=== PATIENT | female | born 1955 | race African-American/Black ===

== ENCOUNTER 2016-09-27 23:15 | Inpatient (IN) ==
[2016-09-27] MEDS ORDERED: ALUM/MAG/SIMETH/LIDO VISC 1:1 30 ML BOTTLE PO STA (23:57)
[2016-09-27] MEDS ORDERED: ONDANSETRON 4 MG/2 ML VIAL IV STA (23:57)
[2016-09-27] MEDS ORDERED: SODIUM CHLORIDE 0.9% 1,000 ML IV STA (23:57)
[2016-09-27] MEDS ORDERED: PANTOPRAZOLE 40 MG VIAL IV STA (23:57)
[2016-09-28 00:45] LABS: Basophils # 0.1 10*3/uL (0.0-0.2); Basophils % 0.6 % (0.0-0.8); Eosinophils # 0.1 10*3/uL (0.0-0.87); Eosinophils % 0.7 % (0.00-10.9); Hematocrit 39.4 VOL% (35.7-47.0); Hemoglobin 12.2 GM/DL (12.0-16.0); Immature Granulocytes % 0.4 %; Immature Granulocytes Absolute 0.06 #; Lymphocytes # 3.7 10*3/uL (1.4-4.0); Lymphocytes % 25.1 % (21.3-54.2); Mean Corpuscular Hemoglobin 24 PG (27-34); Mean Corpuscular Volume 78.5 FL (87-102); Mean Platelet Volume 10.9 FL (9.6-12.0); Monocytes # 0.9 10*3/uL (0.11-0.8); Monocytes % 5.9 % (1.7-12.7); Neutrophils % 67.3 % (38.7-73.9); Platelet Count 274 T/CUMM (130-400); Red Blood Count 5.02 MC/CUMM (3.8-5.5); Red Cell Distribution Width 15.1 % (9.3-17.3); White Blood Count 14.9 T/CUMM (4-12)
[2016-09-28] MEDS ORDERED: ALUM/MAG/SIMETH/LIDO VISC 1:1 30 ML BOTTLE PO ONE (00:46)
[2016-09-28] MEDS ORDERED: ONDANSETRON 4 MG/2 ML VIAL ONE (00:46)
[2016-09-28] MEDS ORDERED: PANTOPRAZOLE 40 MG VIAL IV ONE (00:46)
[2016-09-28 01:11] LABS: Alanine Aminotransferase 35 U/L (13-56); Albumin 3.8 G/DL (3.4-5.0); Alkaline Phosphatase 74 U/L (45-117); Amylase 84 U/L (25-115); Aspartate Amino Transferase 63 U/L (0-37); Bilirubin,Total < 0.39 MG/DL (0.2-1.0); Blood Urea Nitrogen 19 MG/DL (7-18); Calcium 9.2 MG/DL (8.5-10.1); Glucose 200 MG/DL (74-106); Magnesium 1.5 MG/DL (1.8-2.4); Osmolality,Calculated 284.5 MOS/KG (273-304); Potassium 3.7 MMOL/L (3.5-5.1); Sodium 139 MMOL/L (136-145); Total Protein 7.8 G/DL (6.4-8.3); Troponin I Only < 0.015 NG/ML (0.00-0.045)
[2016-09-28] MEDS ORDERED: MAGNESIUM SULF RIDER 2 GM in PREMIX 1 EACH IV STA (01:25)
--- NOTE | 2016-09-28 01:26 | Emergency Department Note ---
ICassie Sierra, am scribing for, and in the presence of, Dane Forrest MD 00:01. Lon Mcduffie Charles R, MD, personally performed the services described in this documentation, ascribed by Berenice Matthews in my presence, and it is both accurate and complete . Arrival - Arrival Chief Complaint: Nausea/Vomiting/Diarrhea Stated Complaint: headache, vomiting ,weak , diarrhea ED Nursing Triage Note: C/O N/V/D/Dizziness. Onset all day today. Pt also reports having a headache for the past 3 days. Mode of Arrival: Wheelchair Limitations: No Limitations Source: Patient Time Seen by Provider: 09/27/16 23:53 - History of Present Illness HPI Narrative: Pt is a 61 y/o female that came to the ED with c/o N/V/D that began last night. Pt reports the diarrhea came on first and stopped tonight but the N/V came on tonight. Pt has associated sxs of orthostatic dizziness, weakness, and abdominal pain but denies CP. Pt states she does have DM and her blood sugar has been around 165 and normally it is higher. Pt reports a PMHx of arthritis and IDDM and a PSHx of cholecystectomy. Pt's PCP is Dr. Gerber. No other complaints/pain in ED. Onset (ago): day(s) Consistency: constant Severity: mild Severity scale (1-10): 2 Quality: other Date of Last Menstrual Period: Hysterectomy Allergies/Adverse Reactions: Allergies Allergy/AdvReac Type Severity Reaction Status Date / Time clonidine Allergy RASH Verified 09/11/16 20:17 codeine Allergy RASH Verified 09/11/16 20:17 levofloxacin [From Levaquin] Allergy Unknown/Unable Verified 09/11/16 20:17 to obtain morphine Allergy RASH Verified 09/11/16 20:17 prednisone Allergy Unknown/Unable Verified 09/11/16 20:17 to obtain Home Medications: Home Medications Medication Instructions Recorded Confirmed Type Amitriptyline [Elavil] 150 mg PO BEDTIME 03/23/16 03/25/16 History Butalbital/Acetaminophen 1 each PO DAILY 03/23/16 03/25/16 History [Butalbital-Acetaminophn 50-325] Cyclobenzaprine [Flexeril] 10 mg PO BID 03/23/16 03/25/16 History Ferrous Sulfate 325 mg PO DAILY 03/23/16 03/25/16 History Gabapentin 300 mg PO TID 03/23/16 03/25/16 History Insulin Glargine,Hum.rec.anlog 50 unit SUBCUT AC BREAKFAST 03/23/16 03/25/16 History [Khushi Hinojosa] Metoclopramide Tab [Reglan Tab] 5 mg PO BID 03/23/16 03/25/16 History Metoprolol Succinate Xl [Toprol Xl] 25 mg PO DAILY 03/23/16 03/25/16 History Potassium Chloride 8 meq PO BID 03/23/16 03/25/16 History Rosuvastatin [Crestor] 10 mg PO DAILY 03/23/16 03/25/16 History Trandolapril/Verapamil HCl [Tarka 1 each PO DAILY 03/23/16 03/25/16 History ER 2-240 mg Tablet] Venlafaxine Xr [Effexor XR] 37.5 mg PO DAILY 03/23/16 03/25/16 History glyBURIDE/METFORMIN 5-500 1 tablet PO BID 03/23/16 03/25/16 History [Glucovance 5-500] hydroCHLOROthiazide 25 mg PO DAILY 03/23/16 03/25/16 History [Hydrochlorothiazide] Naproxen [Naprosyn Tab] 500 mg PO Q12H #30 tablet 08/07/16 Rx Ondansetron Tab [Zofran Tab] 4 mg PO Q6H #12 tablet 08/09/16 Rx metroNIDAZOLE TAB [Flagyl Cap/Tab] 250 mg PO TID #14 tablet 09/12/16 Rx Review of System - Review of System 12 point system: reviewed and no additional remarkable complaints except as stated - Review of System Constitutional: Present: weakness, other (orthostatic dizziness). Absent: fever Respiratory: Absent: cough Cardiovascular: Absent: chest pain Gastrointestinal: Present: abdominal pain, nausea, vomiting, diarrhea (diarrhea last night but not stopped tonight) Musculoskeletal: Absent: arm pain, back pain, leg pain, neck pain Skin: Absent: rash Psychiatric: Absent: anxiety Medical,Surgical,& Family Hx - Medical History Cardio: History of: Hypertension Psychological: History of: Anxiety Disorders Neurology: History of: Migraine HEENT: History of: Ear Problem (had fluid in ear) Endocrine: History of: Diabetes Mellitus (IDDM), Dyslipidemia, Thyroid Disorder Genitourinary: History of: Kidney Stones Gastrointestinal: History of: Diverticulitis/ Diverticulosis, GERD, Hemorrhoids Musculoskeletal: History of: Degenerative Disk Disease, Osteoporosis Hematology: History of: Sickle Cell Disease, Blood Disorders (leukocytosis) - Surgical History HEENT Surgeries: Surgical HX of: Tonsilectomy & Adenoidectomy Abdominal Surgeries: Surgical HX of: Appendectomy, Cholecystectomy, Colonoscopy , EGD Reproductive Surgeries: Surgical HX of;: Genitourinary Surgery (removed kidney stones), Hysterectomy Orthopedic Surgeries: Surgical HX of;: Total Hip Replacement (bilateral), Total Knee Replacement (left) - Family History Family History: Reports;: Family Cancer (sister,neice), Family Diabetes ( grandmother), Family Heart Disease (grandmother), Family Stroke (mother, grandmother) - Social History Smoking Status: Current every day smoker Frequency of Alcohol Use: None Type of Drug Use: None Exam Vital Signs: Vital Signs Temperature 97.4 F L 09/27/16 23:34 Pulse Rate 102 H 09/27/16 23:34 Respiratory Rate 16 09/27/16 23:34 Blood Pressure 98/69 09/27/16 23:34 O2 Sat by Pulse Oximetry 98 09/27/16 23:34 - General General appearance: alert, in no apparent distress - Head Head exam: Present: atraumatic, normocephalic - Eye Eye exam: Present: PERRL, EOMI - ENT ENT exam: Present: mucous membranes dry. Absent: mucous membranes moist - Neck Neck exam: Present: full ROM. Absent: tenderness - Chest Chest inspection: Present: symmetric chest wall rise. Absent: tenderness - Respiratory Respiratory exam: Present: normal lung sounds bilaterally. Absent: respiratory distress - Cardiovascular Cardiovascular exam: Present: regular rate, normal rhythm, normal heart sounds - Abdominal Exam Abdominal exam: Present: soft, tenderness (epigastric tenderness; suprapubic tenderness) - Extremities Exam Extremities exam: Present: full ROM. Absent: tenderness - Back Exam Back exam: Present: full ROM. Absent: tenderness - Neurological Exam Neurological exam: Present: alert, oriented X3, CN II-XII intact. Absent: motor sensory deficit - Psychiatric Psychiatric exam: Present: normal affect, normal mood - Skin Skin exam: Present: other (poor skin turgor) Course - Consultations Consultation #1: Hospitalist will admit patient Time: 03:45 Results - Labs CBC & BMP: 09/27/16 00:36 09/27/16 00:36 Lab Results: I have reviewed the patients labs Labs: Laboratory Tests 09/27/16 00:36 WBC 14.9 H MCV 78.5 L MCH 24 L MCHC 31.0 L Neut # (Auto) 10.0 H Hitchcock # (Auto) 0.9 H Laboratory Tests 09/27/16 00:36 Anion Gap 15.7 H BUN 19 H Creatinine 2.00 H Glucose 200 H Magnesium 1.5 L AST 63 H Globulin 4.0 H Albumin/Globulin Ratio 0.9 L Laboratory Tests 09/28/16 02:30 Urine Color Xuan Urine Appearance Cloudy Urine pH 5.0 Ur Specific [place] 1.021 Urine Protein 100 Urine Glucose (UA) Negative Urine Ketones 5 Urine Blood Negative Urine Nitrate Negative Urine Bilirubin Negative Urine Urobilinogen < 2.0 H Urine Leukocytes Negative Urine RBC 3 Urine WBC 3 Ur Squamous Epith Cells Occasional Urine Bacteria Moderate Hyaline Casts 37 Urine Mucus Occasional Disposition Clinical Impression: Gastroenteritis, Hypovolemia, Hypomagnesemia, Renal insufficiency, Dehydration , Colitis Case discussed with: patient, patient's family Condition: Stable Time of Disposition: 03:46
[2016-09-28] MEDS ORDERED: MAGNESIUM SULF RIDER 50 ML IV ONE (01:27)
[2016-09-28] MEDS ORDERED: SODIUM CHLORIDE 0.9% 1,000 ML IV STA (02:37)
[2016-09-28 02:45] LABS: Apearance,Urine CLOUDY (Clear); Bacteria,Urine Moderate /HPF (Few); Bilirubin,Urine Negative (Negative); Blood, Urine Negative (Negative); Glucose,Urine (UA) Negative (Negative); Hyaline Casts,Urine 37 /LPF (0-3); Ketones,Urine 5 mg/dL (Negative); Mucus,Urine Occasional /LPF (Occasional); Nitrite,Urine Negative (Negative); Protein,Urine 100 MG/DL; RBC,Urine 3 /HPF (0-4); Squamous Epithelial Cell,Urine Occasional /HPF (0-10); Urine Color Amber (Yellow); Urine Specific Gravity 1.021 (1.001-1.035); Urine Urobilinogen < 2.0 EU/DL (0.2-1.0); WBC,Urine 3 /HPF (0-6)
--- NOTE | 2016-09-28 04:36 | Hospitalist History & Physical ---
Assessment and Plan (1) Diabetes mellitus with hyperglycemia Status: Chronic Current Visit: No (2) Hypertension Status: Chronic Current Visit: No (3) Acute renal failure Status: Resolved Current Visit: No (4) Colitis Status: Resolved Current Visit: No (5) Leukocytosis Status: Resolved Assessment and plan: We will admit patient our service. Put on IV antibiotics. Check stool cultures on her treat her symptomatically. She had a CT scan earlier this month approximately 2 weeks ago when she was admitted to Dr. Last. It revealed some mild colitis. Her symptoms seem consistent with that. Will reevaluate after hydration and recheck labs. Her creatinine is a normal value and today it is 2.0 Current Visit: No History of Present Illness Chief complaint: Nausea vomiting diarrhea dizziness History of present illness: Ms. Saxena is a 61 year old female who presents to our ER tonight complaining about gastroenteritis symptoms. She said that her symptoms started yesterday. Started with the diarrhea and then she started throwing up. She felt weak and almost passed out. Symptoms continued. She came up to our hospital for further evaluation. She has had some abdominal pain but denies chest pain. I was consulted to admit her to the emergency room. Her PCP is Dr. Zabrina Al Medications Medication Instructions Recorded Confirmed Type Amitriptyline [Elavil] 150 mg PO BEDTIME 03/23/16 03/25/16 History Butalbital/Acetaminophen 1 each PO DAILY 03/23/16 03/25/16 History [Butalbital-Acetaminophn 50-325] Cyclobenzaprine [Flexeril] 10 mg PO BID 03/23/16 03/25/16 History Ferrous Sulfate 325 mg PO DAILY 03/23/16 03/25/16 History Gabapentin 300 mg PO TID 03/23/16 03/25/16 History Insulin Glargine,Hum.rec.anlog 50 unit SUBCUT AC BREAKFAST 03/23/16 03/25/16 History [Toconsuelo Hinojosa] Metoclopramide Tab [Reglan Tab] 5 mg PO BID 03/23/16 03/25/16 History Metoprolol Succinate Xl [Toprol Xl] 25 mg PO DAILY 03/23/16 03/25/16 History Potassium Chloride 8 meq PO BID 03/23/16 03/25/16 History Rosuvastatin [Crestor] 10 mg PO DAILY 03/23/16 03/25/16 History Trandolapril/Verapamil HCl [Tarka 1 each PO DAILY 03/23/16 03/25/16 History ER 2-240 mg Tablet] Venlafaxine Xr [Effexor XR] 37.5 mg PO DAILY 03/23/16 03/25/16 History glyBURIDE/METFORMIN 5-500 1 tablet PO BID 03/23/16 03/25/16 History [Glucovance 5-500] hydroCHLOROthiazide 25 mg PO DAILY 03/23/16 03/25/16 History [Hydrochlorothiazide] Naproxen [Naprosyn Tab] 500 mg PO Q12H #30 tablet 08/07/16 Rx Ondansetron Tab [Zofran Tab] 4 mg PO Q6H #12 tablet 08/09/16 Rx metroNIDAZOLE TAB [Flagyl Cap/Tab] 250 mg PO TID #14 tablet 09/12/16 Rx Allergies Allergy/AdvReac Type Severity Reaction Status Date / Time clonidine Allergy RASH Verified 09/11/16 20:17 codeine Allergy RASH Verified 09/11/16 20:17 levofloxacin [From Levaquin] Allergy Unknown/Unable Verified 09/11/16 20:17 to obtain morphine Allergy RASH Verified 09/11/16 20:17 prednisone Allergy Unknown/Unable Verified 09/11/16 20:17 to obtain Medical,Surgical,& Family Hx - Medical History Cardio: History of: Hypertension Psychological: History of: Anxiety Disorders Neurology: History of: Migraine HEENT: History of: Ear Problem (had fluid in ear) Endocrine: History of: Diabetes Mellitus (IDDM), Dyslipidemia, Thyroid Disorder Genitourinary: History of: Kidney Stones Gastrointestinal: History of: Diverticulitis/ Diverticulosis, GERD, Hemorrhoids Musculoskeletal: History of: Degenerative Disk Disease, Osteoporosis Hematology: History of: Sickle Cell Disease, Blood Disorders (leukocytosis) - Surgical History HEENT Surgeries: Surgical HX of: Tonsilectomy & Adenoidectomy Abdominal Surgeries: Surgical HX of: Appendectomy, Cholecystectomy, Colonoscopy , EGD Reproductive Surgeries: Surgical HX of;: Genitourinary Surgery (removed kidney stones), Hysterectomy Orthopedic Surgeries: Surgical HX of;: Total Hip Replacement (bilateral), Total Knee Replacement (left) - Family History Family History: Reports;: Family Cancer (sister,neice), Family Diabetes ( grandmother), Family Heart Disease (grandmother), Family Stroke (mother, grandmother) - Social History Smoking Status: Current every day smoker Frequency of Alcohol Use: None Type of Drug Use: None 12 point system: reviewed and no additional remarkable complaints except as stated Exam - Constitutional Vitals: Period Temp Pulse Resp BP Sys/Alvarez Pulse Ox Last 24 Hr 90 16 122/66 99 General appearance: no acute distress, over weight - Head Head exam: Present: normal inspection - Eye Eye exam: Present: EOMI Pupils: Present: BETHANY - ENT ENT exam: Present: normal exam - Neck Neck exam: Present: normal inspection - Respiratory Respiratory exam: Present: clear to auscultation bilaterally - Cardiovascular Cardiovascular exam: Present: regular rate and rhythm - GI/Abdominal GI/Abdominal exam: Present: hyperactive bowel sounds - Extremities Exam Extremities exam: Present: normal inspection - Back Exam Back exam: Present: normal inspection - Neurological Exam Neurological exam: Present: alert - Psychiatric Psychiatric exam: Present: normal affect - Skin Skin exam: Present: normal color Results - Labs CBC & BMP: 09/27/16 00:36 09/27/16 00:36
[2016-09-28] MEDS ORDERED: GLUCAGON 1 MG VIAL IM PRN (04:57)
[2016-09-28] MEDS ORDERED: DEXTROSE 50% 25 GM/50 ML VIAL IV PRN (04:57)
[2016-09-28] MEDS: SODIUM CHLORIDE 0.9% 1,000 ML IV SCH ×2 (05:19→13:15)
[2016-09-28] MEDS: PIPERACILLIN/TAZOBACTAM 3,375 MG in SODIUM CHLORIDE 0.9% 100 ML IV SCH ×2 (05:44→15:14)
--- NOTE | 2016-09-28 06:43 | XRay Report ---
2 view abdomen. Indication: Generalized abdominal pain. Comparison: August 03, 2014. The lung bases are clear. Surgical clips are present in the right upper quadrant. Possible clip or calcification in the right breast. No intra-abdominal organomegaly is seen. There are no abnormal calcifications over the renal outlines. There is air in normal caliber small and large intestine, without evidence of obstruction. There are a few small intestinal air-fluid levels present. No significant distention. Bilateral hip replacements. Degenerative changes of the spinal column and diffuse demineralization of the osseous structures. Impression: Mild ileus bowel gas pattern. PROCEDURE INTERPRETED AT [facility] DEPARTMENT OF RADIOLOGY Final Report Signed by: Dr. Trudy Levine
--- NOTE | 2016-09-28 06:44 | XRay Report ---
Single view of the chest. Indication: Generalized abdominal pain. Comparison: March 25, 2016. The heart is normal in size. The pulmonary vasculature is normal. The lung lopez are free of infiltrate. No pneumothorax or pleural effusion. Degenerative changes of the spinal column. Surgical clips in the right upper quadrant. Impression: Stable appearance of the chest. PROCEDURE INTERPRETED AT [facility] DEPARTMENT OF RADIOLOGY Final Report Signed by: Dr. Trudy Levine
[2016-09-28] MEDS: INSULIN REGULAR 100 UNIT/ML SUBCUT SCH ×4 (08:10→21:41)
[2016-09-28] MEDS: PANTOPRAZOLE 40 MG TABLET PO SCH (09:43)
[2016-09-28] MEDS: metroNIDAZOLE INJ 500 MG in PREMIX 1 EACH IV SCH ×2 (09:43→20:26)
[2016-09-28] MEDS ORDERED: ONDANSETRON 4 MG/2 ML VIAL IV PRN (10:35)
[2016-09-28] MEDS: traMADol 50 MG TABLET PO PRN (16:55)
[2016-09-29] MEDS: traMADol 50 MG TABLET PO PRN (00:25)
[2016-09-29] MEDS: PIPERACILLIN/TAZOBACTAM 3,375 MG in SODIUM CHLORIDE 0.9% 100 ML IV SCH ×4 (00:25→21:39)
[2016-09-29] MEDS: SODIUM CHLORIDE 0.9% 1,000 ML IV SCH ×5 (00:26→22:06)
[2016-09-29] MEDS: metroNIDAZOLE INJ 500 MG in PREMIX 1 EACH IV SCH ×3 (04:18→20:04)
[2016-09-29 06:38] LABS: Basophils # 0.1 10*3/uL (0.0-0.2); Basophils % 0.9 % (0.0-0.8); Eosinophils # 0.2 10*3/uL (0.0-0.87); Immature Granulocytes % 0.4 %; Immature Granulocytes Absolute 0.03 #; Lymphocytes # 3.4 10*3/uL (1.4-4.0); Lymphocytes % 42.4 % (21.3-54.2); Mean Corpuscular HGB Conc 30.3 GM/DL (32-36); Mean Corpuscular Hemoglobin 24 PG (27-34); Mean Corpuscular Volume 78.6 FL (87-102); Mean Platelet Volume 11.4 FL (9.6-12.0); Monocytes # 0.5 10*3/uL (0.11-0.8); Monocytes % 6.2 % (1.7-12.7); Neutrophils # 3.9 10*3/uL (1.4-7.4); Neutrophils % 48.1 % (38.7-73.9); Red Cell Distribution Width 14.9 % (9.3-17.3)
[2016-09-29 06:39] LABS: Platelet Count 210 T/CUMM (130-400); White Blood Count 8.1 T/CUMM (4-12)
[2016-09-29 06:59] LABS: Bilirubin,Total 0.9 MG/DL (0.2-1.0); Calcium 8.4 MG/DL (8.5-10.1); Magnesium 1.8 MG/DL (1.8-2.4); Potassium 3.6 MMOL/L (3.5-5.1); Risk Ratio 3.89; Total Protein 6.1 G/DL (6.4-8.3); VLDL CHOLESTEROL 51.6 MG/DL
--- NOTE | 2016-09-29 07:58 | XRay Report ---
XR chest 2V Indication: Shortness of breath. Comparison: Chest x-ray 09/28/2016 Technique: PA and lateral chest x-ray was performed. Findings: Slightly less and inspiration is present. Linear interstitial markings in the mid lateral left mid to lower lung have increased slightly. These are nonspecific. Lungs otherwise are clear. Heart size normal. Bones and soft tissues stable. Surgical absence of the gallbladder is demonstrated. Impression: 1. Nonspecific interstitial stranding in the left lung base may in part reflect atelectasis. Infection not excluded. 09/29/2016 7:55 AM PROCEDURE INTERPRETED AT [facility] DEPARTMENT OF RADIOLOGY Final Report Signed by: Dr. Jeyson Waldrop
--- NOTE | 2016-09-29 07:59 | XRay Report ---
XR abdomen 1V Indication: Abdominal pain. Comparison: None. Technique: Supine AP image of the abdomen was obtained. Findings: Lung bases are clear. There is no evidence of organomegaly. Bowel gas pattern is unremarkable. Renal contours are bilaterally symmetric. Bones and soft tissues demonstrate no significant abnormalities. Bilateral hip prostheses are demonstrated. Surgical absence of the gallbladder is demonstrated. Impression: 1. No active process is demonstrated within the abdomen or pelvis. 09/29/2016 7:56 AM PROCEDURE INTERPRETED AT [facility] DEPARTMENT OF RADIOLOGY Final Report Signed by: Dr. Jeyson Waldrop
[2016-09-29] MEDS: INSULIN REGULAR 100 UNIT/ML SUBCUT SCH ×4 (08:11→22:33)
[2016-09-29] MEDS: PANTOPRAZOLE 40 MG TABLET PO SCH (08:57)
--- NOTE | 2016-09-29 15:49 | Hospitalist Progress Note ---
Hospitalist: Subjective Interval history: abd pain improving. No fever. No bowel movement since admission. No cp or SOB. No nausea or vomiting. Exam - Constitutional Vitals: Period Temp Pulse Resp BP Sys/Alvarez Pulse Ox Last 24 Hr 97.6 F-98.4 F 84-101 18-20 111-139/55-92 95-99 Exam: A and O x 3 RRR no M CTAB nonlabored Soft, diffuse TTP without rebound or guarding. Warm no c/c/ e Results - Labs CBC & BMP: 09/29/16 05:43 09/29/16 05:43 - Impressions (1) Diabetes mellitus with hyperglycemia- much better controlled Status: Chronic Current Visit: No - controlled on I.S.S. (2) Hypertension essential Status: Chronic Current Visit: No - cont current regimen (3) Acute renal failure Status: Resolved Current Visit: No (4) Suspected Acute Colitis Status: Resolved Current Visit: No - Cont antibiotics and F/U stool studies when available. I think she has constipation and will add stool softener/ laxative. (5) Leukocytosis Status: Resolved with antibiotic therapy D/W pt and family and all questions answered. Possible dc in am - Diagnostic Findings Procedure: Chest x-ray: report reviewed by me (left LL infiltrate), KUB x-ray: report reviewed by me (negative)
[2016-09-29] MEDS ORDERED: BISACODYL 10 MG SUPP RECTAL PRN (16:21)
[2016-09-29] MEDS: POLYETHYLENE GLYCOL POWDER 17 GM PACK PO SCH (16:43)
[2016-09-30] MEDS: metroNIDAZOLE INJ 500 MG in PREMIX 1 EACH IV SCH (04:53)
[2016-09-30] MEDS: SODIUM CHLORIDE 0.9% 1,000 ML IV SCH (06:23)
[2016-09-30] MEDS: PIPERACILLIN/TAZOBACTAM 3,375 MG in SODIUM CHLORIDE 0.9% 100 ML IV SCH (06:26)
--- NOTE | 2016-09-30 08:25 | Discharge Summary ---
<Emma Murphy - Last Filed: 09/30/16 08:28> Hospital Course - Hospital Course Hospital Course: Ms. Saxena is a 61-year-old female patient with a history of diabetes, hypertension, arthritis, renal insufficiency, and colitis that presented to the ED on 09/27 w ith complaints of nausea, vomiting, and diarrhea. Patient stated that she started having diarrhea and then she proceeded to throw up. The patient also had complaints of dizziness, weakness, and abdominal pain. The patient had been recently admitted to Dr. Last after a CT scan revealed mild colitis. Patient was admitted to the hospitalist service for further evaluation and treatment. Pt's WBC was elevated at admission at 14.9 and creatinine was 2. The patient was treated with IV fluids and IV antibiotics ( Zosyn and Flagyl). Leukocytosis has resolved. Pt's condition has improved and vital signs are stable at this time. Pt is stable for discharge. MD to follow. Specialty Discharge - Follow Up or Referrals Follow up with: , PCP [Other] - 2 Weeks Jacoby Barlow MD [Physician] - 10/14/16 10:00 am Discharge Plan - Discharge Data Disposition: Disch To Home/Self Care - Discharge Medications New Amitriptyline [Elavil] 75 mg PO BEDTIME #30 tablet Polyethylene Glycol Powder [Miralax] 17 gm PO DAILY traMADol TAB [Ultram] 25 mg PO Q6H PRN #20 tablet PRN Reason: Pain Pantoprazole Tab [Protonix Tab] 40 mg PO DAILY tablet Continue Insulin Glargine,Hum.rec.anlog [Khushi Hinojosa] 73 unit SUBCUT AC BREAKFAST glyBURIDE/METFORMIN 5-500 [Glucovance 5-500] 1 tablet PO BID Metoclopramide Tab [Reglan Tab] 5 mg PO BID Venlafaxine Xr [Effexor XR] 37.5 mg PO DAILY Rosuvastatin [Crestor] 10 mg PO DAILY Butalbital/Acetaminophen [Butalbital-Acetaminophn 50-325] 1 each PO DAILY Metoprolol Succinate Xl [Toprol Xl] 25 mg PO DAILY Gabapentin 300 mg PO TID Ferrous Sulfate 325 mg PO DAILY Discontinued Potassium Chloride 8 meq PO BID Amitriptyline [Elavil] 150 mg PO BEDTIME hydroCHLOROthiazide [Hydrochlorothiazide] 25 mg PO DAILY Trandolapril/Verapamil HCl [Tarka ER 2-240 mg Tablet] 1 each PO DAILY Cyclobenzaprine [Flexeril] 10 mg PO BID - Follow Up or Referral Follow Up: , PCP [Other] - 2 Weeks Jacoby Barlow MD [Physician] - 10/14/16 10:00 am - Forms/Instructions Exam - Constitutional Vitals: Period Temp Pulse Resp BP Sys/Alvarez Pulse Ox Last 24 Hr 96.8 F-98.2 F 80-91 18-20 137-163/69-92 95-98 Discharge Results Procedures and tests throughout hospitalization: Pending Orders 09/29/16 Stool Culture Routine Labs on day of discharge: Labs from last 24 hours 09/30/16 09/29/16 09/29/16 06:34 20:11 15:50 POC Glucose 166 H 231 H 220 H 09/29/16 11:28 POC Glucose 153 H Preliminary micro results at discharge 09/29/16 Unknown Stool Culture - Preliminary Stool No enteric pathogens at 12 hrs DS: Provider Date of admission: 09/28/16 03:50 Primary care physician: . No PCP Attending physician on admission: Bela Dick MD Consults: 09/28/16 05:02 Consult to Pharmacy [CONS] Routine Reason for Pharmacy Consult: Adjust Meds Renal Funct Discharging clinician: Emma Murphy NP <Bela Dick - Last Filed: 09/30/16 16:33> Hospital Course - Time spent with patient Time with patient DS: Greater than 30 minutes (37 minutes to arrange this discharge) Diagnosis - Discharge Diagnosis (1) Colitis Status: Acute (2) Diabetes mellitus with hyperglycemia Status: Chronic Discharge Plan - Discharge Data Condition at Discharge: Stable Discharge Diet: diabetic diet, other (soft diet) Activity: resume usual activities as tolerated Contact your physician if you experience:: Difficulty voiding, Nausea/Vomiting, pain uncontrolled by pain medications Exam - Constitutional Exam: see progress note from today for physical exam
[2016-09-30] MEDS: INSULIN REGULAR 100 UNIT/ML SUBCUT SCH ×2 (08:36→12:41)
[2016-09-30] MEDS: POLYETHYLENE GLYCOL POWDER 17 GM PACK PO SCH (08:37)
[2016-09-30] MEDS: PANTOPRAZOLE 40 MG TABLET PO SCH (08:38)
[2016-09-30] MEDS: traMADol 50 MG TABLET PO PRN (08:46)
--- NOTE | 2016-09-30 09:59 | Physician Query Form ---
CLICK EDIT DOCUMENT TO SELECT QUERY ANSWER --> OK --> SIGN Alysia Waldrop RN, CCDS Certified Clinical It Operations Analyst W) [phone] (f) [phone] [email or web address] PROVIDERS: Make your selection(s) from the choices in EACH section by typing an "x" and enter comments in the comment section. Please use your independent medical judgment in providing your response. This request does not imply that any particular answer is desired or expected. CLINICAL INDICATORS: (Providers should not edit this section) The medical record indicates that the patient was admitted with renal failure, Leukocytosis, WBC of 14.9, "Chest x-ray: report reviewed by me (left LL infiltrate)", and the patient was treated with Zosyn/ Flagyl. Based on the above, could you clarify the appropriate diagnosis, if significant , that supports the above abnormalities and additional evaluation, monitoring, and/or treatment rendered: ( ) Infiltrate due to ( ) Infiltrated due to Pneumonia ( x) Infiltrate was not a Pneumonia ( x) Other, please specify: suspect atelectasis ( ) Clinically unable to determine COMMENTS: Use of terms such as suspected, likely, or probable (associated with a specific diagnosis that is being evaluated, monitored, or treated as if it exists) are acceptable and can be restated in the discharge summary if not ruled out. MTDD
[2016-09-30] MEDS ORDERED: METOCLOPRAMIDE 5 MG TABLET PO ONE (10:52)
--- NOTE | 2016-09-30 10:58 | Hospitalist Progress Note ---
Hospitalist: Subjective Interval history: Pt reports nausea and heartburn symptoms this am and epigastric tenderness. She did not eat breakfast. Received IV Zofran. She denies any further cp or SOB. +BM. Exam - Constitutional Vitals: Period Temp Pulse Resp BP Sys/Alvarez Pulse Ox Last 24 Hr 96.8 F-98.2 F 80-91 18-20 137-163/69-92 95-98 Exam: A and O x 3 RRR no M CTAB nonlabored Soft, mild epigastric TTP without rebound or guarding. Warm no c/c/ e Results - Labs CBC & BMP: 09/29/16 05:43 09/29/16 05:43 - Impressions (1) Diabetes mellitus with hyperglycemia- much better controlled Status: Chronic Current Visit: No - BS relatively controlled on I.S.S. (2) Hypertension essential Status: Chronic Current Visit: No - cont current regimen. Will hold most BP meds but resume metoprolol as BP normal now. (3) Acute renal failure Status: Resolved Current Visit: No (4) Suspected Acute Colitis with constipation Status: Resolved Current Visit: No - Cont antibiotics and C diff negative. stool culture pending. Cont stool softener/ laxative. (5) Leukocytosis Status: Resolved with antibiotic therapy (6) Chronic pain syndrome. Resume home meds at lower dose. D/W pt and family and all questions answered. Possible dc later today if tolerates lunch
[2016-09-30] MEDS ORDERED: SODIUM CHLORIDE 0.9% 1,000 ML IV SCH (11:00)
[2016-09-30 13:34] VITALS: BP 130/90
[2016-09-30] MEDS ORDERED: POTASSIUM CHLORIDE 8 MEQ CAPSULE PO SCH (21:00)
[2016-09-30] MEDS ORDERED: AMITRIPTYLINE 100 MG TABLET PO SCH (21:00)
[2016-09-30] MEDS ORDERED: AMITRIPTYLINE 75 MG TABLET PO SCH (21:00)
[2016-09-30] MEDS ORDERED: METOCLOPRAMIDE 5 MG TABLET PO SCH (21:00)
[2016-10-01] MEDS ORDERED: METOPROLOL SUCCINATE XL 25 MG TABLET PO SCH (09:00)
[2016-10-01] MEDS ORDERED: VENLAFAXINE XR 37.5 MG CAPSULE PO SCH (09:00)
[2016-10-01] MEDS ORDERED: ROSUVASTATIN 10 MG TABLET PO SCH (09:00)
[2016-10-01] MEDS ORDERED: BUTALBITAL/ACETAMIN/CAFFEINE 50-325-40 MG TABLET PO SCH (09:00)
== END 2016-09-30 15:00 | disposition home or self-care (01) | DRG 392 ==
LOC: N.ED 23:15 → N.EDINP 09-28 03:50 → N.2E 09-28 04:26
PROVIDERS: ADMIT Pediatrics; ATTEND Pediatrics

== ENCOUNTER 2017-03-18 17:34 | Inpatient (IN) ==
--- NOTE | 2017-03-18 17:43 | Order Completion Report ---
See report scanned to EMR
[2017-03-18] MEDS ORDERED: ASPIRIN 325 MG TABLET PO STA (17:52)
[2017-03-18] MEDS ORDERED: ONDANSETRON 4 MG/2 ML VIAL IV STA (17:52)
[2017-03-18] MEDS ORDERED: NITROGLYCERIN 2% OINT 1 INCH/GM PACK TOP STA (17:52)
[2017-03-18] MEDS ORDERED: ALUM/MAG/SIMETH/LIDO VISC 1:1 30 ML BOTTLE PO STA (17:52)
[2017-03-18] MEDS ORDERED: METOCLOPRAMIDE 10 MG/2 ML VIAL IV STA (17:54)
[2017-03-18] MEDS ORDERED: PANTOPRAZOLE 40 MG VIAL IV STA (17:54)
--- NOTE | 2017-03-18 17:58 | Emergency Department Note ---
Arrival - Arrival Chief Complaint: Chest Pain Stated Complaint: chest and back pain ED Nursing Triage Note: C/o epigastric burning radiating into chest-onset yesterday. +diaphoresis +nausea. +SOB. Mode of Arrival: Wheelchair Limitations: No Limitations Source: Patient Time Seen by Provider: 03/18/17 17:52 - History of Present Illness HPI Narrative: This 62-year-old black female presents 24 hours post onset of midepigastric and retrosternal pain radiating to the back. Associated with this initially was shortness of breath, nausea, and diaphoresis which subsequently resolved by the time the patient went to bed. Throughout the day today she has continued to have this pain for which she has failed to find a position in which she can be comfortable and for that reason presents now. She does have significant complaints of heartburn, belching, and severe water brash the last several days. She states she had a prior situation somewhat at this but gives a confusing history of it being related to some sort of renal problem and colitis. She appears uncomfortable but is in no acute medical distress. Onset (ago): hour(s) (Patient presents 24 hours post onset of symptoms.) Date of Last Menstrual Period: hysterectomy Allergies/Adverse Reactions: Allergies Allergy/AdvReac Type Severity Reaction Status Date / Time clonidine Allergy RASH Verified 09/11/16 20:17 codeine Allergy RASH Verified 09/11/16 20:17 levofloxacin [From Levaquin] Allergy Unknown/Unable Verified 09/11/16 20:17 to obtain morphine Allergy RASH Verified 09/11/16 20:17 prednisone Allergy Unknown/Unable Verified 09/11/16 20:17 to obtain Home Medications: Home Medications Medication Instructions Recorded Confirmed Type Ferrous Sulfate 325 mg PO DAILY 03/23/16 03/18/17 History Gabapentin 300 mg PO TID 03/23/16 03/18/17 History Insulin Glargine,Hum.rec.anlog 73 unit SUBCUT AC BREAKFAST 03/23/16 03/18/17 History [Khushi Hinojosa] Metoprolol Succinate Xl [Toprol Xl] 25 mg PO DAILY 03/23/16 03/18/17 History Rosuvastatin [Crestor] 10 mg PO BEDTIME 03/23/16 03/18/17 History glyBURIDE/METFORMIN 5-500 1 tablet PO BID 03/23/16 03/18/17 History [Glucovance 5-500] Amitriptyline [Elavil] 75 mg PO BEDTIME #30 tablet 09/30/16 03/18/17 Rx Pantoprazole Tab [Protonix Tab] 40 mg PO DAILY tablet 09/30/16 03/18/17 Rx Alendronate Sodium [Fosamax] 70 mg PO Q7DAY 03/18/17 03/18/17 History Cyclobenzaprine [Flexeril] 10 mg PO BID PRN 03/18/17 03/18/17 History Fenofibric Acid (Choline) 135 mg PO DAILY 03/18/17 03/18/17 History [Trilipix] Meclizine [Antivert] 25 mg PO BID 03/18/17 03/18/17 History Olopatadine 0.1% Oph Soln [Patanol 1 drop BOTH EYES BID 03/18/17 03/18/17 History 0.1% Oph Soln] Ondansetron Tab [Zofran Tab] 4 mg PO Q6H PRN 03/18/17 03/18/17 History hydroCHLOROthiazide 25 mg PO DAILY 03/18/17 03/18/17 History [Hydrochlorothiazide] Review of System - Review of System 12 point system: reviewed and no additional remarkable complaints except as stated - Review of System Constitutional: Present: as per HPI Respiratory: Present: as per HPI Cardiovascular: Present: as per HPI Gastrointestinal: Present: as per HPI Medical,Surgical,& Family Hx - Medical History Cardio: History of: Hypertension Psychological: History of: Anxiety Disorders Neurology: History of: Migraine HEENT: History of: Ear Problem (had fluid in ear) Endocrine: History of: Diabetes Mellitus (IDDM), Dyslipidemia, Thyroid Disorder Genitourinary: History of: Kidney Stones Gastrointestinal: History of: Diverticulitis/ Diverticulosis, GERD, Hemorrhoids , GI Problems (Colitis) Musculoskeletal: History of: Degenerative Disk Disease, Osteoporosis Hematology: History of: Sickle Cell Disease, Blood Disorders (leukocytosis) - Surgical History HEENT Surgeries: Surgical HX of: Tonsilectomy & Adenoidectomy Abdominal Surgeries: Surgical HX of: Appendectomy, Cholecystectomy, Colonoscopy , EGD Reproductive Surgeries: Surgical HX of;: Genitourinary Surgery (removed kidney stones), Hysterectomy Orthopedic Surgeries: Surgical HX of;: Total Hip Replacement (bilateral), Total Knee Replacement (left) - Family History Family History: Reports;: Family Cancer (sister,neice), Family Heart Disease ( grandmother), Family Stroke (mother,grandmother) Denies;: Family Diabetes - Social History Smoking Status: Current every day smoker Frequency of Alcohol Use: None Type of Drug Use: None Exam Physical Examination: GENERAL: Obese black female in no acute distress. HEENT: Normocephalic. No trauma. Moist mucous membranes. EOMI. PERRLA. ENT NML NECK: Supple. No adenopathy. CARDIAC: Regular. No murmurs. Heart rate 1 CHEST: Clear to auscultation. No respiratory distress. O2 sat 98% ABDOMEN: Soft. Mildly tender mid epigastrium. Active bowel sounds. EXTREMITIES: No trauma. Normal ROM. No pedal edema. SKIN: No diaphoresis. No rash. NEURO: Alert. Neuro intact no focal deficits. Vital Signs: Vital Signs Temperature 99.2 F 03/18/17 19:02 Pulse Rate 126 H 03/18/17 19:02 Respiratory Rate 25 H 03/18/17 19:02 Blood Pressure 194/108 03/18/17 19:02 O2 Sat by Pulse Oximetry 98 03/18/17 17:36 Course - Reevaluation(s) Reevaluation #1: Advised patient with resting tachycardia, elevated white blood cell count, and evidence of colitis on CT that hospitalization is indicated. - Consultations Consultation #1: Discussed with hospitalist service who will admit for further evaluation treatment. Results - Labs CBC & BMP: 03/18/17 17:51 03/18/17 17:51 Labs: I reviewed the lab and noted the elevated white blood count, low potassium, elevated blood sugar, and elevated lactic acid. - Impressions EKG: Sinus tachycardia at 120 with normal NC interval and QRS duration. Diffuse nonspecific ST changes. No acute injury pattern noted. - Diagnostic Findings Procedure: Abdominal x-ray: image reviewed by me, report reviewed by me (No acute process on plain film but evidence of constipation), Chest x-ray: image reviewed by me, report reviewed by me (Normal chest), CT Abdomen and Pelvis: image reviewed by me, report reviewed by me (Evidence of colitis and constipation) Disposition Clinical Impression: Colitis, Diabetes Case discussed with: patient, patient's family Disposition: Still a Patient Condition: Guarded Time of Disposition: 21:42
[2017-03-18] MEDS ORDERED: NITROGLYCERIN 2% OINT 1 INCH/GM PACK TOP ONE (18:11)
[2017-03-18] MEDS ORDERED: hydrALAZINE 20 MG/1 ML VIAL ONE (18:11)
[2017-03-18] MEDS ORDERED: PANTOPRAZOLE 40 MG VIAL IV ONE (18:11)
[2017-03-18] MEDS ORDERED: ASPIRIN 325 MG TABLET ONE (18:12)
[2017-03-18] MEDS ORDERED: ONDANSETRON 4 MG/2 ML VIAL ONE (18:12)
[2017-03-18] MEDS ORDERED: METOCLOPRAMIDE 10 MG/2 ML VIAL ONE (18:12)
[2017-03-18] MEDS ORDERED: ALUM/MAG/SIMETH/LIDO VISC 1:1 30 ML BOTTLE PO ONE (18:12)
[2017-03-18 18:14] LABS: Basophils # 0.1 10*3/uL (0.0-0.2); Basophils % 0.4 % (0.0-0.8); Eosinophils # 0.1 10*3/uL (0.0-0.87); Eosinophils % 0.8 % (0.00-10.9); Hematocrit 42.5 VOL% (35.7-47.0); Hemoglobin 13.5 GM/DL (12.0-16.0); Immature Granulocytes % 0.4 %; Immature Granulocytes Absolute 0.07 #; Lymphocytes % 24.5 % (21.3-54.2); Mean Corpuscular HGB Conc 31.8 GM/DL (32-36); Mean Corpuscular Hemoglobin 24 PG (27-34); Mean Corpuscular Volume 75.9 FL (87-102); Mean Platelet Volume 10.8 FL (9.6-12.0); Monocytes # 0.8 10*3/uL (0.11-0.8); Neutrophils # 11.1 10*3/uL (1.4-7.4); Neutrophils % 68.9 % (38.7-73.9); Platelet Count 284 T/CUMM (130-400); Red Cell Distribution Width 15.4 % (9.3-17.3); White Blood Count 16.1 T/CUMM (4-12)
[2017-03-18] MEDS: hydrALAZINE 20 MG/1 ML VIAL IV STA ×2 (18:22→18:47)
[2017-03-18 18:27] LABS: PT Patient Result 10.4 SECS; Partial Thromboplastin Time 25.3 SECS (0-40)
[2017-03-18] MEDS ORDERED: SODIUM CHLORIDE 0.9% 1,000 ML IV STA (18:31)
[2017-03-18 18:38] LABS: Lactic Acid 3.9 MMOL/L (0.4-2.0)
--- NOTE | 2017-03-18 18:46 | XRay Report ---
History: Abdominal pain Date: 03/18/2017 Study: Flat and erect abdomen Comparison exam: September 29, 2016 There is no evidence of pneumoperitoneum. There is no sabrina bowel obstruction. There is a moderate amount of retained stool in the colon. Surgical clips overlie the right upper abdomen from previous cholecystectomy. No definite radiopaque calculi are present. There has been previous bilateral hip replacement. There is mild lumbar spondylosis. Impression: No definite acute process. Moderate amount of retained stool in the colon PROCEDURE INTERPRETED AT [facility] DEPARTMENT OF RADIOLOGY Final Report Signed by: Dr. Hazel Roberts
[2017-03-18 18:52] LABS: Alanine Aminotransferase 28 U/L (13-56); Albumin 3.3 G/DL (3.4-5.0); Alkaline Phosphatase 120 U/L (45-117); Amylase 55 U/L (25-115); Aspartate Amino Transferase 27 U/L (0-37); Bilirubin,Total < 0.39 MG/DL (0.2-1.0); Blood Urea Nitrogen 8 MG/DL (7-18); Calcium 9.5 MG/DL (8.5-10.1); Glucose 264 MG/DL (74-106); Magnesium 1.5 MG/DL (1.8-2.4); Potassium 3.3 MMOL/L (3.5-5.1); Sodium 136 MMOL/L (136-145); Total Protein 7.3 G/DL (6.4-8.3); Troponin I Only < 0.015 NG/ML (0.00-0.045)
--- NOTE | 2017-03-18 18:58 | XRay Report ---
History: Chest pain Date: 03/18/2017 Study: Chest x-ray PA and lateral Comparison exam: September 29, 2016 The cardiac silhouette is not enlarged. There is no mediastinal mass. The pulmonary vasculature is not engorged. There is no pleural effusion. There is no acute infiltrate. The lungs are clear except for some mild chronic interstitial changes in the bases. There is moderate thoracic spondylosis. Surgical clips overlie the right upper abdomen from previous cholecystectomy Impression: No acute cardiopulmonary process compared to the previous study PROCEDURE INTERPRETED AT [facility] DEPARTMENT OF RADIOLOGY Final Report Signed by: Dr. Hazel Roberts
[2017-03-18 19:07] LABS: Apearance,Urine CLEAR (Clear); Bilirubin,Urine Negative (Negative); Blood, Urine Small mg/dL (Negative); Glucose,Urine (UA) 150 mg/dL (Negative); Ketones,Urine Negative (Negative); Mucus,Urine Occasional /LPF (Occasional); Nitrite,Urine Negative (Negative); Protein,Urine 30 MG/DL; RBC,Urine 5 /HPF (0-4); Squamous Epithelial Cell,Urine Occasional /HPF (0-10); Urine Color Yellow (Yellow); Urine Urobilinogen < 2.0 EU/DL (0.2-1.0); WBC,Urine 1 /HPF (0-6)
[2017-03-18 19:13] LABS: Barbiturates Screen,Urine Positive (Negative); Benzodiazepines Screen,Urine Negative (Negative); Cannabinoid Screen,Urine Negative (Negative); Opiate Screen,Urine Negative (Negative); Phencyclidine Screen,Urine Negative (Negative)
[2017-03-18] MEDS ORDERED: POTASSIUM BICARB EFFERVESCENT 25 MEQ TABLET PO ONE ×2 (19:19→19:49)
--- NOTE | 2017-03-18 21:06 | CT Report ---
History: Colitis. Abdominal pain Date: 03/18/2017 Study: CT abdomen and pelvis with IV contrast Comparison exam: September 11, 2016 Technique: Spiral CT sections were obtained from the lung bases to the pubic symphysis following 100 mL Omnipaque [address] abdomen: The partially visualized lung bases are generally clear. There is no gross pleural or pericardial effusion. The gallbladder is surgically absent. There is mild diffuse fatty infiltration of the otherwise unremarkable liver. The spleen, pancreas, bile ducts, and right adrenal gland are normal. There is a 2.2 cm left adrenal nodule without change from the previous study. There are some nonspecific small renal cysts which are unchanged. There is bilateral renal excretion without hydronephrosis. There is no aneurysm of the mildly calcified abdominal aorta. There is some mild diffuse prominence of the wall of the descending colon, extending to the sigmoid region. This could represent low-grade colitis, though this could be artifactual related to lack of colonic distention. There is no gross pericolonic fat inflammatory change. There is a moderate amount of retained stool in the colon. There is no abscess. There is no evidence of pneumoperitoneum. There is no sabrina bowel obstruction. CT pelvis: There is no gross pelvic mass or gross pelvic fluid collection. There is prominent metallic artifact related to bilateral hip prostheses. The CT exam was performed using one or more of the following dose reduction techniques: Automated exposure control, adjustment of the mA and/or kV according to patient size, or use of iterative reconstruction technique. Impression: Mild diffuse prominence of the wall of the descending colon could be related to low-grade colitis, though some of this appearance could be artifactual related to lack of colonic distention. There is no sabrina bowel obstruction. There is moderate retained stool in the colon. No potential acute process otherwise. Stable nonacute findings discussed above. Stable left adrenal nodule. Mild fatty infiltration of the liver. PROCEDURE INTERPRETED AT [facility] DEPARTMENT OF RADIOLOGY Final Report Signed by: Dr. Hazel Roberts
[2017-03-18] MEDS ORDERED: metroNIDAZOLE INJ 500 MG in PREMIX 1 EACH IV STA (21:40)
[2017-03-18] MEDS ORDERED: metroNIDAZOLE 500 MG/100 ML PREMIX IV ONE (21:47)
--- NOTE | 2017-03-18 22:05 | Hospitalist History & Physical ---
History of Present Illness Chief complaint: abdominal pain History of present illness: Ms. Saxena is a 62 year old female who presents with sharp, constant, mid epigastric pain with radiations to her chest and back. She noted some SOB that started yesterday along with some wheezing. Her respiratory issues have since resolved. She denies any nausea/vomiting/decreased oral intake/diarrhea/melena/ hematochezia. She states that her last bowel movement was today and that it was soft. She admits for more belching along with dysuria/fevers/chills. There is no association between the abdominal pain and food intake. Her temperature at home was 99. She denies any NSAID use. She was hospitalized back in 09/20 for colitis, and she states that her symptoms are similar to previous bout of colitis. While in the ER, she was given a GI cocktail which helped. She was also given Flagyl/potassium/IVFs/PPI/hydralazine. Her blood pressure was 194/108. Home Medications Medication Instructions Recorded Confirmed Type Ferrous Sulfate 325 mg PO DAILY 03/23/16 03/18/17 History Gabapentin 300 mg PO TID 03/23/16 03/18/17 History Insulin Glargine,Hum.rec.anlog 73 unit SUBCUT AC BREAKFAST 03/23/16 03/18/17 History [Toueloyo SoloStar] Metoprolol Succinate Xl [Toprol Xl] 25 mg PO DAILY 03/23/16 03/18/17 History Rosuvastatin [Crestor] 10 mg PO BEDTIME 03/23/16 03/18/17 History glyBURIDE/METFORMIN 5-500 1 tablet PO BID 03/23/16 03/18/17 History [Glucovance 5-500] Amitriptyline [Elavil] 75 mg PO BEDTIME #30 tablet 09/30/16 03/18/17 Rx Pantoprazole Tab [Protonix Tab] 40 mg PO DAILY tablet 09/30/16 03/18/17 Rx Alendronate Sodium [Fosamax] 70 mg PO Q7DAY 03/18/17 03/18/17 History Cyclobenzaprine [Flexeril] 10 mg PO BID PRN 03/18/17 03/18/17 History Fenofibric Acid (Choline) 135 mg PO DAILY 03/18/17 03/18/17 History [Trilipix] Meclizine [Antivert] 25 mg PO BID 03/18/17 03/18/17 History Olopatadine 0.1% Oph Soln [Patanol 1 drop BOTH EYES BID 03/18/17 03/18/17 History 0.1% Oph Soln] Ondansetron Tab [Zofran Tab] 4 mg PO Q6H PRN 03/18/17 03/18/17 History hydroCHLOROthiazide 25 mg PO DAILY 03/18/17 03/18/17 History [Hydrochlorothiazide] Allergies Allergy/AdvReac Type Severity Reaction Status Date / Time clonidine Allergy RASH Verified 09/11/16 20:17 codeine Allergy RASH Verified 09/11/16 20:17 levofloxacin [From Levaquin] Allergy Unknown/Unable Verified 09/11/16 20: to obtain morphine Allergy RASH Verified 09/11/16 20:17 prednisone Allergy Unknown/Unable Verified 09/11/16 20:17 to obtain Medical,Surgical,& Family Hx - Medical History Cardio: History of: Hypertension Psychological: History of: Anxiety Disorders Neurology: History of: Migraine HEENT: History of: Ear Problem (had fluid in ear) Endocrine: History of: Diabetes Mellitus (IDDM), Dyslipidemia, Thyroid Disorder Genitourinary: History of: Kidney Stones Gastrointestinal: History of: Diverticulitis/ Diverticulosis, GERD, Hemorrhoids , GI Problems (Colitis) Musculoskeletal: History of: Degenerative Disk Disease, Osteoporosis Hematology: History of: Sickle Cell Disease, Blood Disorders (leukocytosis) - Surgical History HEENT Surgeries: Surgical HX of: Tonsilectomy & Adenoidectomy Abdominal Surgeries: Surgical HX of: Appendectomy, Cholecystectomy, Colonoscopy , EGD Reproductive Surgeries: Surgical HX of;: Genitourinary Surgery (removed kidney stones), Hysterectomy Orthopedic Surgeries: Surgical HX of;: Total Hip Replacement (bilateral), Total Knee Replacement (left) - Family History Family History: Reports;: Family Cancer (sister,neice), Family Heart Disease ( grandmother), Family Stroke (mother,grandmother) Denies;: Family Diabetes - Social History Smoking Status: Light tobacco smoker (currently smokes 6 cigs a day; has been smoking for the past 42 years) Frequency of Alcohol Use: None Type of Drug Use: None - Constitutional Constitutional: Present: chills, fever(s). Absent: night sweats, weight loss - EENT Nose, mouth and throat: Absent: dysphagia - Cardiovascular Cardiovascular: Present: diaphoresis, lightheadedness. Absent: dyspnea, palpitations - Respiratory Respiratory: Present: other (wheezing and SOB on yesterday, now resolved). Absent: cough, wheezing - Gastrointestinal Gastrointestinal: Present: abdominal pain. Absent: coffee ground emesis, constipation, diarrhea, dysphagia, hematochezia - Psychiatric Psychiatric: Present: anxiety. Absent: depression, difficulty concentrating Exam - Constitutional Vitals: Period Temp Pulse Resp BP Sys/Alvarez Pulse Ox Last 24 Hr 98.0 F-99.2 F 121-126 20-25 175-194/95-108 98 General appearance: mild distress, over weight - Head Head exam: Present: normal inspection - Eye Eye exam: Present: EOMI. Absent: conjunctival injection Pupils: Present: BETHANY - Respiratory Respiratory exam: Present: clear to auscultation bilaterally. Absent: chest wall tenderness, rales, rhonchi, wheezes - Cardiovascular Cardiovascular exam: Present: tachycardia. Absent: diastolic murmur, systolic murmur - GI/Abdominal GI/Abdominal exam: Present: normal bowel sounds, tenderness (mid epigastric and right sided tenderness, no rebound or guarding), soft. Absent: distended, guarding - Extremities Exam Extremities exam: Absent: edema - Neurological Exam Neurological exam: Present: alert, oriented X3 - Psychiatric Psychiatric exam: Present: normal affect, normal mood, agitated - Skin Skin exam: Present: normal color, warm Results - Labs CBC & BMP: 03/18/17 17:51 03/18/17 17:51 - EKG EKG shows: tachycardia (sinus tachycardia with HR of 120; prolonged qtc) - Impressions Patient is a 62 yo female who presents with acute abdominal pain. Thoughts include colitis, gastritis, and constipation. 1. Acute abdominal pain 2. Acute colitis: CT showed mild colitis. Given her sepsis, will treat as infectious. 3. Gastritis 4. Constipation: CT showed moderate fecal retention. 5. Sepsis: given tachycardia/elevated lactic acid/leukocytosis. Suspect GI source. Blood cultures pending 6. Hypertension, uncontrolled 7. Hypokalemia, hypomagnesiemia: replete and monitor 8. Sinus tachycardia: could be 2nd to sepsis; monitor; check TSH 9. Prolonged Qtc: could be 2nd to electrolyte abnormalities; given chest pain, will evaluate for ischemia. Check TSH 10. Tobacco disorder; counselled about ill health effects of smoking and encouraged to stop; she voiced understanding (counseling time: 10 minutes); will avoid nicotine products given acute colitis 11. DM with hyperglycemia 12. comorbid conditions: anxiety, hyperTG, cervical radiculopathy Plan: admit to telemetry; continue IVFs, trend lactic acid levels; zosyn ( allergy to levaquin), flagyl; PPI; simethicone; miralax; consult GI; replete electrolytes; follow up EKG; control sugars and blood pressure; obtain hba1c; add duoneb treatment; restart home medications as appropriate; DVT prophalaxis. Medications reconciled. The plan of care may be modified as more information becomes available. CODE: FULL - Diagnostic Findings Procedure: Chest x-ray: report reviewed by me (no acute findings), CT Abdomen and Pelvis: report reviewed by me (diffuse prominence of hte wall of the descending colon; coujld be low grade colitis; moderate retained stool in the colon)
[2017-03-18] MEDS ORDERED: ALUMINUM/MAGNES/SIMETH MAX STR 30 ML UDCUP PO PRN (22:22)
[2017-03-18] MEDS ORDERED: MAGNESIUM SULFATE 1 GM/2 ML VIAL IM ONE (22:24)
[2017-03-18] MEDS ORDERED: POTASSIUM CHLORIDE RIDER 10 MEQ in PREMIX 1 EACH IV ONE (22:25)
[2017-03-18] MEDS ORDERED: GLUCAGON 1 MG VIAL IM PRN (22:29)
[2017-03-18] MEDS ORDERED: ALBUTEROL/IPRATROPIUM 3 ML NEB RESP TX PRN (22:29)
[2017-03-18] MEDS ORDERED: DEXTROSE 50% 25 GM/50 ML VIAL IV PRN (22:29)
[2017-03-18] MEDS ORDERED: SODIUM CHLORIDE 0.9% 1,000 ML IV SCH (22:30)
[2017-03-18] MEDS ORDERED: hydrALAZINE 20 MG/1 ML VIAL IV PRN (22:31)
[2017-03-18] MEDS ORDERED: ONDANSETRON 4 MG/2 ML VIAL IV PRN (22:33)
[2017-03-18] MEDS ORDERED: CYCLOBENZAPRINE 10 MG TABLET PO PRN (22:35)
[2017-03-19] MEDS ORDERED: MAGNESIUM SULFATE 1 GM/2 ML VIAL IM ONE (00:30)
[2017-03-19] MEDS ORDERED: MAGNESIUM SULF RIDER 2 GM in PREMIX 1 EACH IV SCH (02:00)
[2017-03-19] MEDS: PIPERACILLIN/TAZOBACTAM 3,375 MG in SODIUM CHLORIDE 0.9% 100 ML IV SCH ×3 (02:17→17:20)
[2017-03-19] MEDS ORDERED: MAGNESIUM SULF RIDER 2 GM in PREMIX 1 EACH IV ONE ×2 (02:30→04:00)
[2017-03-19] MEDS ORDERED: METOPROLOL TARTRATE 25 MG TABLET PO ONE (03:12)
[2017-03-19] MEDS: metroNIDAZOLE INJ 500 MG in PREMIX 1 EACH IV SCH ×4 (03:33→16:07)
[2017-03-19 05:21] LABS: Basophils # 0.1 10*3/uL (0.0-0.2); Basophils % 0.5 % (0.0-0.8); Eosinophils # 0.1 10*3/uL (0.0-0.87); Eosinophils % 0.9 % (0.00-10.9); Hematocrit 37.7 VOL% (35.7-47.0); Hemoglobin 12.1 GM/DL (12.0-16.0); Immature Granulocytes % 0.3 %; Immature Granulocytes Absolute 0.04 #; Lymphocytes # 3.1 10*3/uL (1.4-4.0); Lymphocytes % 25.6 % (21.3-54.2); Mean Corpuscular HGB Conc 32.1 GM/DL (32-36); Mean Corpuscular Hemoglobin 24 PG (27-34); Mean Corpuscular Volume 75.4 FL (87-102); Mean Platelet Volume 10.7 FL (9.6-12.0); Monocytes # 0.9 10*3/uL (0.11-0.8); Monocytes % 7.7 % (1.7-12.7); Neutrophils # 7.9 10*3/uL (1.4-7.4); Platelet Count 248 T/CUMM (130-400); Red Cell Distribution Width 15.4 % (9.3-17.3); White Blood Count 12.1 T/CUMM (4-12)
[2017-03-19 05:47] LABS: Calcium 8.6 MG/DL (8.5-10.1); Magnesium 2.3 MG/DL (1.8-2.4); Osmolality,Calculated 274.5 MOS/KG (273-304); Potassium 3.4 MMOL/L (3.5-5.1)
[2017-03-19 05:57] LABS: Free T4 (Free Thyroxine) 1.08 NG/DL (0.76-1.46); Thyroid Stimulating Hormone 2.71 uIU/ml (0.358-3.74)
[2017-03-19] MEDS ORDERED: ACETAMINOPHEN 325 MG TABLET PO PRN (06:20)
[2017-03-19] MEDS: POTASSIUM CHLORIDE 20 MEQ TABLET PO PRN ×3 (06:38→14:26)
[2017-03-19] MEDS: INSULIN LISPRO 100 UNIT/ML SUBCUT SCH ×4 (07:19→20:30)
[2017-03-19 07:28] LABS: Sedimentation Rate-Westergren 46 MM/HR (0-30)
--- NOTE | 2017-03-19 07:49 | Gastrointestinal Consult Note ---
Assessment and Plan - Time spent with patient Time spent with patient: Greater than 30 minutes (1) Abdominal pain Status: Acute Current Visit: Yes (2) Abnormal findings on diagnostic imaging of abdomen Status: Acute Current Visit: Yes (3) Other specified counseling Status: Acute Current Visit: Yes History of Present Illness History of present illness: Ms. Saxena is a 62 year old female Home Medications Medication Instructions Recorded Confirmed Type Ferrous Sulfate 325 mg PO DAILY 03/23/16 03/18/17 History Gabapentin 300 mg PO TID 03/23/16 03/18/17 History Insulin Glargine,Hum.rec.anlog 73 unit SUBCUT AC BREAKFAST 03/23/16 03/18/17 History [Toujeo SoloStar] Metoprolol Succinate Xl [Toprol Xl] 25 mg PO DAILY 03/23/16 03/18/17 History Rosuvastatin [Crestor] 10 mg PO BEDTIME 03/23/16 03/18/17 History glyBURIDE/METFORMIN 5-500 1 tablet PO BID 03/23/16 03/18/17 History [Glucovance 5-500] Amitriptyline [Elavil] 75 mg PO BEDTIME #30 tablet 09/30/16 03/18/17 Rx Pantoprazole Tab [Protonix Tab] 40 mg PO DAILY tablet 09/30/16 03/18/17 Rx Alendronate Sodium [Fosamax] 70 mg PO Q7DAY 03/18/17 03/18/17 History Cyclobenzaprine [Flexeril] 10 mg PO BID PRN 03/18/17 03/18/17 History Fenofibric Acid (Choline) 135 mg PO DAILY 03/18/17 03/18/17 History [Trilipix] Meclizine [Antivert] 25 mg PO BID 03/18/17 03/18/17 History Olopatadine 0.1% Oph Soln [Patanol 1 drop BOTH EYES BID 03/18/17 03/18/17 History 0.1% Oph Soln] Ondansetron Tab [Zofran Tab] 4 mg PO Q6H PRN 03/18/17 03/18/17 History hydroCHLOROthiazide 25 mg PO DAILY 03/18/17 03/18/17 History [Hydrochlorothiazide] Allergies Allergy/AdvReac Type Severity Reaction Status Date / Time clonidine Allergy RASH Verified 09/11/16 20:17 codeine Allergy RASH Verified 09/11/16 20:17 levofloxacin [From Levaquin] Allergy Unknown/Unable Verified 09/11/16 20:17 to obtain morphine Allergy RASH Verified 09/11/16 20:17 prednisone Allergy Unknown/Unable Verified 09/11/16 20:17 to obtain Medical,Surgical,& Family Hx - Medical History Cardio: History of: Hypertension Psychological: History of: Anxiety Disorders Neurology: History of: Migraine HEENT: History of: Ear Problem (had fluid in ear) Endocrine: History of: Diabetes Mellitus (IDDM), Dyslipidemia, Thyroid Disorder Genitourinary: History of: Kidney Stones Gastrointestinal: History of: Diverticulitis/ Diverticulosis, GERD, Hemorrhoids , GI Problems (Colitis) Musculoskeletal: History of: Degenerative Disk Disease, Osteoporosis Hematology: History of: Sickle Cell Disease, Blood Disorders (leukocytosis) - Surgical History HEENT Surgeries: Surgical HX of: Tonsilectomy & Adenoidectomy Abdominal Surgeries: Surgical HX of: Appendectomy, Cholecystectomy, Colonoscopy , EGD Reproductive Surgeries: Surgical HX of;: Genitourinary Surgery (removed kidney stones), Hysterectomy Orthopedic Surgeries: Surgical HX of;: Total Hip Replacement (bilateral), Total Knee Replacement (left) - Family History Family History: Reports;: Family Cancer (sister,neice), Family Heart Disease ( grandmother), Family Stroke (mother,grandmother) Denies;: Family Diabetes - Social History Smoking Status: Light tobacco smoker Frequency of Alcohol Use: None Type of Drug Use: None Exam - Constitutional Vitals: Period Temp Pulse Resp BP Sys/Alvarez Pulse Ox Last 24 Hr 96.9 F-99.2 F 99-129 16-29 127-194/64-111 98-100 Results - Labs CBC & BMP: 03/19/17 05:01 03/19/17 05:02 Note Addendum: PLEASE NOTE -- automatic citation of patient information is unavoidable in this electronic note. I have made a reasonable effort to review the information cited , but it is not a part of my evaluation, impression, or recommendation unless specifically discussed in the dictated text that follows. As well, voice recognition software was used in the creation of this clinical note. Reasonable effort was made to identify and correct gross errors. Despite proofreading, errors in typing section chief may be present, including nonsense verbiage at times. If you encounter such an error, please contact me at [phone] for discussion and correction. -- Katherine Chief complaint: abdominal pain History of present illness: This is a new patient, a 62-year-old - [place] female seen by consultation for evaluation of abdominal pain. The patient is admitted to the hospitalist service under the care of Dr. Dalal with a primary diagnosis of nonspecific abdominal pain. The patient was admitted through the emergency department yesterday with primary complaint of radiating epigastric pain for two days. Evaluation at that time revealed leukocytosis and hyperglycemia as well as nonspecific thickening in the left colon. She was admitted to the telemetry floor and started on crystalloid resuscitation as well as broad-spectrum antibiotic and proton pump inhibitor. With this therapy she reports some improvement of symptoms. She has at least two prior admissions with primary or secondary diagnoses of acute colitis, most recently September of this year. She has had prior endoscopic evaluation, upper, without findings about two months ago. She does not recall prior colonoscopy. She knows that she has been feeling ill since. She is able to eat and drink but has some nausea associated with that. She is a long-term diabetic minced that diabetic control has been poor for several months. She has not changed medications recently. She has not changed her diaries. Patient denies rigors, headache, dizziness, neck pain, visual changes, redness of the eyes, difficulty chewing, weight loss, hematemesis, hematochezia, melena , proctalgia, dysuria, skin changes, temperature regulation issues, flushing, easy bleeding/bruising, mental status change, numbness/weakness in the extremities, yellowing of the eyes/skin, cutaneous eruptions, and other complaints in general. Review of systems: 12 point review of systems was negative except as documented above. Outpatient medications: iron sulfate three and 25 mg daily, gabapentin 3 mg three times daily, insulin glargine as directed, metoprolol 25 mg daily, Crestor 10 mg daily, Duran Gil 5/500 twice daily, Elavil 75 mg daily, Protonix 40 mg daily, Fosamax 70 mg weekly, Flexeril 10 mg twice daily as needed, Trilipix 135 mg daily, and divert 25 mg twice daily, Zofran 4 mg every six hours as needed, hydrochlorothiazide 25 mg daily Inpatient medications: Tylenol six and 50 mg every four hours as needed, Mylanta 30 mL every four hours as needed, Duoneb every four hours as needed, Elavil 75 mg daily, Flexeril 10 mg twice daily as needed, Lovenox 40 mg daily, aren't sulfate 3 to 25 mg daily, gabapentin 300 mg three times daily, hydralazine 10 mg every six hours as needed, insulin as directed, Toradol 30 mg every six hours as needed, metoprolol 25 mg daily, Flagyl 5 mg every eight hours , Zofran 4 mg every four hours as needed, Protonix 40 mg daily, Zosyn 3.375 g every eight hours, Crestor 10 mg daily, potassium chloride 20 mEq as needed Past Medical History: hypertension, diabetes, left hip pain, urinary tract infection, diabetes with peripheral neuropathy, gastroparesis, esophageal stricture, polypharmacy with poor compliance, osteoarthritis Social history: positive tobacco. Negative alcohol Family history: no gastrointestinal cancers Physical examination: Vital Signs: Current vital signs reviewed and documented above. General Appearance: lying in bed. Comfortable. No apparent distress Head: Normocephalic. Neck: Palpation of the neck revealed no abnormalities. Eyes: No scleral icterus. No scleral injection. No conjunctival pallor. Oral Cavity: Odor of breath was normal. No drooling was observed. Lips showed no abnormalities. Floor of the mouth showed no abnormalities. Pharynx: Oropharynx was normal. Lungs: Respiration rhythm and depth was normal. Cardiovascular: Heart rate and rhythm were normal. No murmurs were appreciated. Abdomen: abdomen was not distended. Abdominal palpation revealed no tenderness and no hepatosplenomegaly. Ascites was not discovered. Abdominal auscultation revealed positive bowel sounds. Musculoskeletal System: Musculoskeletal system was grossly normal. Neurological: level of consciousness was normal. Speech was normal. Skin: General appearance was normal. Color and pigmentation were normal. No skin lesions. Laboratory: white blood count 12.1, hemoglobin 12.1, MCV 75, platelets 248, INR 1.0, PT 10 .4, ALT 28, AST 27, alkaline phosphatase 120, total bilirubin 0.4, albumin 3.3, total protein 7.3, lipase 108, urinalysis negative, toxicology positive for barbiturate Radiology: -- CT abdomen/pelvis, 03/18/17: mild diffuse prominence of the wall of the descending colon; no bowel obstruction; moderate retain stool Impressions: #1. Abdominal pain -- the patient has multifocal pain with postprandial exacerbation. She has undergone upper endoscopy with no finding per her recollection that we will need to get that record from the endoscopy Center. She is a long-term diabetic and symptoms are exacerbated with eating. This is suggestive of gastroparesis and we can screen for this with a gastric emptying study. In the interim, I recommend small meals multiple times per day versus three discrete meals. As well, aggressive control of diabetes may provide some benefit. Depending on the result of that exam, we could consider the addition of Reglan. #2. Abnormal imaging of the rectum -- the patient denies he is yet. This finding is consistent with infectious or inflammatory colitis and further evaluation with colonoscopy as indicated. We can accomplish this during this admission and we will plan that for Tuesday. #3. Other specified counseling -- The patient was seen for greater than 30 minutes. The patient was counseled for greater than 50% of this time regarding differential diagnosis, likely diagnosis, diagnostic and therapeutic alternatives, risks/benefits/alternatives of medications and procedures, and plan of care generally. The patient expressed understanding and wishes to proceed. Recommendations: -- advance diet as tolerated, multiple small meals versus three discrete meals -- continued crystalloid resuscitation -- antibiotic at your discretion -- nuclear medicine gastric emptying study -- proton pump inhibitor -- consider Reglan based on radiology findings -- colonoscopy with timing based on clinical progress, likely Tuesday -- thank you for this consultation. Follow with you.
--- NOTE | 2017-03-19 07:59 | Order Completion Report ---
See report scanned to EMR
[2017-03-19] MEDS ORDERED: PANTOPRAZOLE 40 MG TABLET PO SCH (09:00)
[2017-03-19] MEDS: FERROUS SULFATE 325 MG TABLET PO SCH (09:49)
[2017-03-19] MEDS: METOPROLOL SUCCINATE XL 25 MG TABLET PO SCH (09:49)
[2017-03-19] MEDS: GABAPENTIN 300 MG CAPSULE PO SCH ×3 (09:49→20:31)
[2017-03-19] MEDS: PANTOPRAZOLE 40 MG TABLET PO SCH (09:49)
[2017-03-19] MEDS: ENOXAPARIN 40 MG/0.4 ML SYRINGE SUBCUT SCH (09:50)
--- NOTE | 2017-03-19 13:33 | Hospitalist Progress Note ---
Assessment and Plan (1) Colitis Status: Acute Assessment and plan: Continue antibiotics. Continue IV fluids. Plan for colonoscopy Tuesday. 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; Z79.4 - superintendent [employer] (current) use of insulin; Z79.4 - [facility] (current) use of insulin (3) Leukocytosis Status: Acute Current Visit: Yes (4) Abdominal pain Status: Acute Current Visit: Yes Qualifiers: Abdominal location: generalized Qualified Code(s): R10.84 - Generalized abdominal pain (5) Abnormal findings on diagnostic imaging of abdomen Status: Acute Assessment and plan: findings of colitis Current Visit: Yes Hospitalist: Subjective Interval history: 62-year-old female admitted overnight from the emergency department with abdominal pain and CT scan evidence of colitis. The patient has been seen by gastroenterology this morning and there is plans for colonoscopy on Tuesday. She is receiving empiric antibiotic therapy and IV fluids. She reports some improvement in her pain. Her pain is located mostly on the right side of her abdomen and right flank. Further recommend patient will depend on her response to therapy. She is receiving potassium supplementation. Her hemoglobin A1c is 9.8. Exam - Constitutional Vitals: Period Temp Pulse Resp BP Sys/Alvarez Pulse Ox Last 24 Hr 96.9 F-99.2 F 90-129 16-29 127-194/64-111 98-100 Exam: Constitutional System: No distress. No tremulousness. Head: Normocephalic, atraumatic. Ears, Nose and Throat System: No pain or tenderness. No epistaxis or discharge Eyes System: Pupils equal, round, and reactive. Extraocular muscles intact. Neck: Supple, without adenopathy, No jugular venous distention. No thyromegaly, neck mass, or prior surgery apparent. Respiratory System: Chest clear to auscultation. Cardiovascular System: Heart with regular rate and rhythm. No murmur. GI System: Abdomen soft, mildly tender to palpation in the right side and right flank. Normo active bowel sounds present. Musculoskeletal System: limbs with no pedal edema. Full distal pulses. Normal capillary refill. Neurological System: No discernable sensory deficit. No aphasia Psychiatric System: Conversation is rational Results - Labs CBC & BMP: 03/19/17 05:01 03/19/17 05:02 Lab Results: I have reviewed the past 24 hour labs
[2017-03-19] MEDS: OLOPATADINE 0.1% OPH SOLN 5 ML BOTTLE BOTH EYES SCH (20:28)
[2017-03-19] MEDS: KETOROLAC 30 MG/1 ML VIAL IV PRN (20:30)
[2017-03-19] MEDS: AMITRIPTYLINE 75 MG TABLET PO SCH (20:31)
[2017-03-19] MEDS: ROSUVASTATIN 10 MG TABLET PO SCH (20:31)
[2017-03-20] MEDS: metroNIDAZOLE INJ 500 MG in PREMIX 1 EACH IV SCH ×3 (00:47→17:19)
[2017-03-20] MEDS: PIPERACILLIN/TAZOBACTAM 3,375 MG in SODIUM CHLORIDE 0.9% 100 ML IV SCH ×3 (01:49→18:33)
[2017-03-20 06:16] LABS: Basophils % 0.3 % (0.0-0.8); Eosinophils # 0.2 10*3/uL (0.0-0.87); Hematocrit 36.7 VOL% (35.7-47.0); Hemoglobin 11.2 GM/DL (12.0-16.0); Immature Granulocytes % 0.5 %; Immature Granulocytes Absolute 0.05 #; Lymphocytes # 3.4 10*3/uL (1.4-4.0); Lymphocytes % 35.2 % (21.3-54.2); Mean Corpuscular HGB Conc 30.5 GM/DL (32-36); Mean Corpuscular Hemoglobin 24 PG (27-34); Mean Corpuscular Volume 77.4 FL (87-102); Mean Platelet Volume 10.9 FL (9.6-12.0); Monocytes # 0.9 10*3/uL (0.11-0.8); Monocytes % 9.3 % (1.7-12.7); Neutrophils # 5.2 10*3/uL (1.4-7.4); Neutrophils % 52.7 % (38.7-73.9); Platelet Count 234 T/CUMM (130-400); Red Blood Count 4.74 MC/CUMM (3.8-5.5); Red Cell Distribution Width 15.8 % (9.3-17.3); White Blood Count 9.8 T/CUMM (4-12)
[2017-03-20 06:49] LABS: Albumin 2.6 G/DL (3.4-5.0); Bilirubin,Total 0.8 MG/DL (0.2-1.0); Calcium 8.1 MG/DL (8.5-10.1); Magnesium 2.1 MG/DL (1.8-2.4); Osmolality,Calculated 284.1 MOS/KG (273-304); Total Protein 6.1 G/DL (6.4-8.3)
[2017-03-20] MEDS: OLOPATADINE 0.1% OPH SOLN 5 ML BOTTLE BOTH EYES SCH ×2 (08:10→20:35)
[2017-03-20] MEDS: GABAPENTIN 300 MG CAPSULE PO SCH ×3 (08:10→20:34)
[2017-03-20] MEDS: METOPROLOL SUCCINATE XL 25 MG TABLET PO SCH (08:10)
[2017-03-20] MEDS: PANTOPRAZOLE 40 MG TABLET PO SCH (08:10)
[2017-03-20] MEDS: FERROUS SULFATE 325 MG TABLET PO SCH (08:10)
[2017-03-20] MEDS: ENOXAPARIN 40 MG/0.4 ML SYRINGE SUBCUT SCH (08:11)
[2017-03-20] MEDS: INSULIN LISPRO 100 UNIT/ML SUBCUT SCH ×4 (08:11→20:34)
--- NOTE | 2017-03-20 09:24 | Event Note ---
Gastric emptying study ordered. Dr. Roberts will follow up results tomorrow.
[2017-03-20] MEDS: KETOROLAC 30 MG/1 ML VIAL IV PRN ×2 (13:29→20:35)
[2017-03-20] MEDS ORDERED: POLYETHYLENE GLYCOL POWDER 17 GM PACK PO PRN (15:35)
[2017-03-20] MEDS ORDERED: MAGNESIUM HYDROXIDE SUSP 30 ML UDCUP PO ONE (15:35)
[2017-03-20] MEDS ORDERED: MAGNESIUM HYDROXIDE SUSP 30 ML UDCUP PO PRN (15:35)
[2017-03-20] MEDS ORDERED: METOCLOPRAMIDE 10 MG/2 ML VIAL IV ONE (15:36)
--- NOTE | 2017-03-20 15:38 | Hospitalist Progress Note ---
Assessment and Plan (1) Colitis Status: Acute Assessment and plan: Continue antibiotics. Continue IV fluids. Plan for colonoscopy Tuesday. 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 Current Visit: Yes Qualifiers: Abdominal location: generalized Qualified Code(s): R10.84 - Generalized abdominal pain (5) Abnormal findings on diagnostic imaging of abdomen Status: Acute Assessment and plan: findings of colitis Current Visit: Yes Hospitalist: Subjective Interval history: Patient seen and examined. No acute events overnight. Case discussed with nursing staff. Labs reviewed. Reports improvement in nausea. No vomiting no diarrhea. No bowel movement since . Continues to have some right sided abdominal pain that radiates into the flank. Urine studies were unremarkable. Incidental finding of 1 out of 2 blood cultures positive. Likely contamination. Follow-up final results. Exam - Constitutional Vitals: Period Temp Pulse Resp BP Sys/Alvarez Pulse Ox Last 24 Hr 97 F-99 F 90-101 18-20 130-164/70-80 96-100 Exam: Constitutional System: No distress. No tremulousness. Head: Normocephalic, atraumatic. Ears, Nose and Throat System: No pain or tenderness. No epistaxis or discharge Eyes System: Pupils equal, round, and reactive. Extraocular muscles intact. Neck: Supple, without adenopathy, No jugular venous distention. No thyromegaly, neck mass, or prior surgery apparent. Respiratory System: Chest clear to auscultation. Cardiovascular System: Heart with regular rate and rhythm. No murmur. GI System: Abdomen soft, mildly tender to palpation in the right side and right flank. Normo active bowel sounds present. Musculoskeletal System: limbs with no pedal edema. Full distal pulses. Normal capillary refill. Neurological System: No discernable sensory deficit. No aphasia Psychiatric System: Conversation is rational Results - Labs CBC & BMP: 03/20/17 04:43 03/20/17 04:43 Lab Results: I have reviewed the past 24 hour labs
[2017-03-20] MEDS: DOCUSATE SODIUM 100 MG CAPSULE PO SCH (20:33)
[2017-03-20] MEDS: AMITRIPTYLINE 75 MG TABLET PO SCH (20:34)
[2017-03-20] MEDS: ROSUVASTATIN 10 MG TABLET PO SCH (20:34)
[2017-03-21] MEDS: metroNIDAZOLE INJ 500 MG in PREMIX 1 EACH IV SCH ×3 (00:04→17:03)
[2017-03-21] MEDS: PIPERACILLIN/TAZOBACTAM 3,375 MG in SODIUM CHLORIDE 0.9% 100 ML IV SCH ×2 (01:17→11:22)
[2017-03-21] MEDS: INSULIN LISPRO 100 UNIT/ML SUBCUT SCH ×4 (09:29→20:46)
--- NOTE | 2017-03-21 10:13 | Gastrointestinal Progress Note ---
Assessment and Plan (1) Abdominal pain Status: Acute Assessment and plan: 03/21-abdominal pain improved, currently awaiting second phase of gastric emptying scan with results pending. Recent endoscopy noted as below. CT findings noted as below. Await [facility] results at this time. Plan an addendum to followed by Dr. Roberts Current Visit: Yes Qualifiers: Abdominal location: generalized Qualified Code(s): R10.84 - Generalized abdominal pain Gastroenterology - PN: Subj Interval history: CC: Abdominal pain Patient is seen, awake and alert, waiting to return for the second part of her gastric emptying scan this morning. She was admitted on 03/18 with complaints of abdominal pain primarily in the epigastric region. On admission she was found to have leukocytosis and hyperglycemia. She also has an complaints at that time of nausea but denied any vomiting with this. She has a long-term diabetic and states that she has had poorly controlled blood sugars over the last several months. Hemoglobin A1c is noted at 8.1. She also has a history of diverticulitis in the past. She does recall that she had an EGD done approximately 2 months ago at the endoscopic center by Dr. Roberts in which she underwent esophageal dilation, stating that this did help her dysphagia, and also states her last colonoscopy was approximately 8 years ago and at that time she was told to return in 10 years. She does deny any melena or hematochezia with her bowel movements. States her bowels did move well yesterday. On admission she was noted to have on her CT of the abdomen mild diffuse prominence of the descending colon. Her leukocytosis has since resolved. She is afebrile. Abdomen is soft, nontender. ROS: Denies shortness of breath or chest pain Exam (Progress Note) - Constitutional Vitals: Period Temp Pulse Resp BP Sys/Alvarez Pulse Ox Last 24 Hr 96.7 F-98.2 F 87-100 18-20 130-166/68-81 94-99 General appearance: normal weight, no acute distress - Head Head exam: Present: normal inspection, normocephalic - Eye Eye exam: Present: other (Lids and conjunctivae are unremarkable). Absent: scleral icterus - ENT ENT exam: Present: normal exam, normal oropharynx - Neck Neck exam: Present: normal inspection - Respiratory Respiratory exam: Present: clear to auscultation bilaterally. Absent: rales, rhonchi, wheezes - Cardiovascular Cardiovascular exam: Present: regular rate and rhythm. Absent: diastolic murmur , JVD, systolic murmur - GI/Abdominal GI/Abdominal exam: Present: normal bowel sounds, soft. Absent: ascites, distended, mass, organomegaly, tenderness - Extremities Exam Extremities exam: Present: normal inspection, full ROM - Back Exam Back exam: Present: normal inspection - Neurological Exam Neurological exam: Present: alert, oriented X3 - Psychiatric Psychiatric exam: Present: normal affect, normal mood - Skin Skin exam: Present: normal color, warm, dry Results - Labs CBC & BMP: 03/20/17 04:43 03/20/17 04:43 Lab Results: I have reviewed the past 24 hour labs
--- NOTE | 2017-03-21 11:37 | Nuclear Medicine Report ---
NM gastric emptying study Indication: Diabetic with postprandial nausea and bloating. GASTRIC EMPTYING NUCLEAR MEDICINE SCAN Technique: 500 ?Ci technetium 99 labeled sulfur colloid was given by mouth in solid food (scrambled egg sandwich). Time activity curves of the stomach with linear fit analysis was performed. Findings: Half-life 149 minutes by linear fit, 115 minutes by raw data. At 236 minutes, 87% emptying noted. Impression: Slightly delayed gastric emptying. PROCEDURE INTERPRETED AT [facility] DEPARTMENT OF RADIOLOGY Final Report Signed by: Javi Guadarrama M.D.
[2017-03-21] MEDS: FERROUS SULFATE 325 MG TABLET PO SCH (14:15)
[2017-03-21] MEDS: METOPROLOL SUCCINATE XL 25 MG TABLET PO SCH (14:15)
[2017-03-21] MEDS: GABAPENTIN 300 MG CAPSULE PO SCH ×3 (14:16→20:47)
[2017-03-21] MEDS: PANTOPRAZOLE 40 MG TABLET PO SCH (14:17)
[2017-03-21] MEDS: OLOPATADINE 0.1% OPH SOLN 5 ML BOTTLE BOTH EYES SCH ×2 (14:17→20:48)
[2017-03-21] MEDS: DOCUSATE SODIUM 100 MG CAPSULE PO SCH ×2 (14:17→21:00)
[2017-03-21] MEDS: ENOXAPARIN 40 MG/0.4 ML SYRINGE SUBCUT SCH (14:18)
--- NOTE | 2017-03-21 16:47 | Hospitalist Progress Note ---
Assessment and Plan - Time spent with patient Time spent with patient: Less than 30 minutes (1) Abdominal pain Status: Acute Assessment and plan: 03/21/17 abdominal pain - gastric study - shows delayed gastric emptying, GI is following and greatly appreciate their assistance -Blood culture pending final results - Continue zosyn and flaygyl -Start Reglan - 5mg p.o. achs - for assistance with delayed gastric emptying -HTN- continue current medications -Will plan to discharge home tomorrow -Further recommendations to follow per Dr Dalal Current Visit: Yes Qualifiers: Abdominal location: generalized Qualified Code(s): R10.84 - Generalized abdominal pain (2) Colitis Status: Acute Current Visit: Yes Hospitalist: Subjective Interval history: Patient seen and chart reviewed. She was not in room earlier this morning because she was gone for gastric studies. She reports feeling a little better but her abdominal pain is still a 5 out of 10 and diffuse. She denies any chest pain, shortness of breath, nausea, or vomiting. Her gastric emptying study resulted: slightly delayed gastric emptying, GI is following and greatly appreciate recommendations with care. Exam - Constitutional Vitals: Period Temp Pulse Resp BP Sys/Alvarez Pulse Ox Last 24 Hr 96.7 F-98.7 F 87-100 18-20 130-166/70-96 94-99 General appearance: normal weight, no acute distress - Head Head exam: Present: normal inspection, normocephalic - Eye Eye exam: Present: EOMI Pupils: Present: BETHANY - Neck Neck exam: Present: normal inspection. Absent: thyromegaly - Respiratory Respiratory exam: Present: clear to auscultation bilaterally. Absent: rales, rhonchi, stridor, wheezes - Cardiovascular Cardiovascular exam: Present: regular rate and rhythm - GI/Abdominal GI/Abdominal exam: Present: normal bowel sounds, tenderness (diffuse tenderness) , soft. Absent: firm, guarding, rebound - Extremities Exam Extremities exam: Present: normal inspection, full ROM. Absent: edema - Neurological Exam Neurological exam: Present: alert, oriented X3, CN II-XII intact - Psychiatric Psychiatric exam: Present: normal affect, normal mood. Absent: agitated, anxious - Skin Skin exam: Present: normal color, warm, dry Results - Labs CBC & BMP: 03/20/17 04:43 03/20/17 04:43 Lab Results: I have reviewed the past 24 hour labs - Impressions GASTRIC EMPTYING NUCLEAR MEDICINE SCAN: Impression: Slightly delayed gastric emptying.
[2017-03-21] MEDS: KETOROLAC 30 MG/1 ML VIAL IV PRN (17:00)
[2017-03-21] MEDS: AMITRIPTYLINE 75 MG TABLET PO SCH (20:45)
[2017-03-21] MEDS: METOCLOPRAMIDE 5 MG TABLET PO SCH (20:46)
[2017-03-21] MEDS: ROSUVASTATIN 10 MG TABLET PO SCH (20:47)
[2017-03-22] MEDS: metroNIDAZOLE INJ 500 MG in PREMIX 1 EACH IV SCH ×2 (01:28→10:14)
[2017-03-22] MEDS: DOCUSATE SODIUM 100 MG CAPSULE PO SCH (09:19)
[2017-03-22] MEDS: METOPROLOL SUCCINATE XL 25 MG TABLET PO SCH (10:09)
[2017-03-22] MEDS: METOCLOPRAMIDE 5 MG TABLET PO SCH (10:10)
[2017-03-22] MEDS: GABAPENTIN 300 MG CAPSULE PO SCH (10:11)
[2017-03-22] MEDS: PANTOPRAZOLE 40 MG TABLET PO SCH (10:12)
[2017-03-22] MEDS: ENOXAPARIN 40 MG/0.4 ML SYRINGE SUBCUT SCH (10:12)
[2017-03-22] MEDS: INSULIN LISPRO 100 UNIT/ML SUBCUT SCH (10:12)
[2017-03-22] MEDS: FERROUS SULFATE 325 MG TABLET PO SCH (10:12)
[2017-03-22] MEDS: OLOPATADINE 0.1% OPH SOLN 5 ML BOTTLE BOTH EYES SCH (10:14)
--- NOTE | 2017-03-22 10:19 | Gastrointestinal Progress Note ---
Assessment and Plan (1) Abdominal pain Status: Acute Assessment and plan: 03/22-abdominal pain improved, no complaints of nausea. Tolerating diet. Okay to discharge from GI standpoint. Plan an addendum to followed by Dr. Roberts. 03/21-abdominal pain improved, currently awaiting second phase of gastric emptying scan with results pending. Recent endoscopy noted as below. CT findings noted as below. Await GES results at this time. Plan an addendum to followed by Dr. Roberts Current Visit: Yes Qualifiers: Abdominal location: generalized Qualified Code(s): R10.84 - Generalized abdominal pain Gastroenterology - PN: Subj Interval history: CC: Abdominal pain Patient is seen, awake and alert sitting up in bed with family at bedside. States she is feeling a little better today. She denies any abdominal pain, nausea or vomiting. She is tolerating her diet well at present time. Gastric emptying scan results noted. Patient was noted to be started on Reglan by her attending following GES results. Discussed with patient potential side effects regarding Reglan and if these were to occur to discontinue the medication at that time. Patient verbalizes understanding. Also discussed with patient repeating her colonoscopy after she has improved with her abdominal pain and nausea. Patient states she will contact Dr. Roberts's office regarding scheduling this appointment after discharge. Abdomen is soft, nontender. ROS: Denies shortness of breath or chest pain Exam (Progress Note) - Constitutional Vitals: Period Temp Pulse Resp BP Sys/Alvarez Pulse Ox Last 24 Hr 97.2 F-98.7 F 91-105 16-20 144-193/75-96 95-99 General appearance: normal weight, no acute distress - Head Head exam: Present: normal inspection, normocephalic - Eye Eye exam: Present: other (Lids and conjunctive are unremarkable). Absent: scleral icterus - ENT ENT exam: Present: normal exam, normal oropharynx - Neck Neck exam: Present: normal inspection - Respiratory Respiratory exam: Present: clear to auscultation bilaterally. Absent: rales, rhonchi, wheezes - Cardiovascular Cardiovascular exam: Present: regular rate and rhythm. Absent: diastolic murmur , JVD, systolic murmur - GI/Abdominal GI/Abdominal exam: Present: normal bowel sounds, soft. Absent: ascites, distended, mass, organomegaly, tenderness - Extremities Exam Extremities exam: Present: normal inspection, full ROM - Back Exam Back exam: Present: normal inspection - Neurological Exam Neurological exam: Present: alert, oriented X3 - Psychiatric Psychiatric exam: Present: normal affect, normal mood - Skin Skin exam: Present: normal color, warm, dry Results - Labs CBC & BMP: 03/20/17 04:43 03/20/17 04:43 Lab Results: I have reviewed the past 24 hour labs
--- NOTE | 2017-03-22 11:16 | Discharge Summary ---
<Farrah Tomlin - Last Filed: 03/22/17 11:19> Hospital Course - Hospital Course Hospital Course: Ms Saxena 62 y/o black female w/PMHx HTN, Anxiety, Migraine, Diabetes, Kidney Stones, GERD, hemorrhoids, Sickle cell disease, presented to the ED on 03/18/17 for further evaluation of mid-epigastric and retrosternal pain radiating to back. IN ED: WBC 16.1, H&H stable. D-dimer negative. K 3.3. Glucose 264. Lactic Acid 3.9. Magnesium 1.5. Alkaline Phosphatase 120. A1c 9.8. Troponin negative. Toxicology barbiturates positive. Abd xray: nothing acute. , moderate amount of retained stool in colon. CXR: nothing acute. ABD CT: Impression: Mild diffuse prominence of the wall of the descending colon could be related to low-grade colitis, though some of this appearance could be artifactual related to lack of colonic distention. There is no sabrina bowel obstruction. There is moderate retained stool in the colon. Hospital Medicine consulted. Patient admitted to telemetry. Start sepsis treatment for acute colitis, IVFs, trend lactic, zosyn, flagyl, PPI, simethicone, miralax, GI consult, A1c, duonebs, DVT prophylaxis. Final Blood cultures Pending Results. GI Consult/recommendations: suggestive of gastroparesis; screen for this with a gastric emptying study. Gastric emptying study impression of slightly delayed gastric emptying. Recommend small meals multiple times per day versus three discrete meals and aggressive control of diabetes may provide some benefit. Addition of Reglan for assistance with slow motility. Discussed low residue diet with her and need to adhere to this at discharge. Continue Zofran as needed for nausea symptoms. She needs repeat colonoscopy as an outpatient once her upper abdominal discomfort/nausea has settled. Today Ms Saxena is feeling better overall. Abdominal pain has improved. Tolerating diet. She agrees with plan of discharging home today. She will need to follow up with Primary Care Provider in 1 week. She will need to continue Reglan and will need to follow up with GI and will need an outpatient follow up colonoscopy once she has recovered from acute illness. Further discharge planning recommendations to follow per Dr Dalal. I have personally seen and examined this patient today. I agree with the below note as prepared by the advanced practice provider. I agree with the assessment and plan. Case discussed with Farrah Tomlin [employer]. She is being discharged home today with a new prescription for Reglan. She was diagnosed with gastroparesis during this hospitalization. She is to follow-up with her primary care physician as above. Home medications reviewed and reconciled. Diagnosis - Discharge Diagnosis (1) Abdominal pain Status: Acute (2) Colitis Status: Acute Specialty Discharge - Follow Up or Referrals Follow up with: Maksim Roberts MD [Physician] - (Follow up as discussed.) Jacoby Barlow MD [Primary Care Provider] - 03/29/17 2:30 pm () Discharge Plan - Discharge Data Disposition: Disch To Home/Self Care - Discharge Medications New Metoclopramide Tab [Reglan Tab] 5 mg PO ACHS #120 tablet Continue Insulin Glargine,Hum.rec.anlog [Toujeo SoloStar] 73 unit SUBCUT AC BREAKFAST glyBURIDE/METFORMIN 5-500 [Glucovance 5-500] 1 tablet PO BID Rosuvastatin [Crestor] 10 mg PO BEDTIME Metoprolol Succinate Xl [Toprol Xl] 25 mg PO DAILY Gabapentin 300 mg PO TID Ferrous Sulfate 325 mg PO DAILY Amitriptyline [Elavil] 75 mg PO BEDTIME #30 tablet Olopatadine 0.1% Oph Soln [Patanol 0.1% Oph Soln] 1 drop BOTH EYES BID Alendronate Sodium [Fosamax] 70 mg PO Q7DAY Fenofibric Acid (Choline) [Trilipix] 135 mg PO DAILY Meclizine [Antivert] 25 mg PO BID Cyclobenzaprine [Flexeril] 10 mg PO BID PRN PRN Reason: Spasms hydroCHLOROthiazide [Hydrochlorothiazide] 25 mg PO DAILY Pantoprazole Tab [Protonix Tab] 40 mg PO DAILY tablet Ondansetron Tab [Zofran Tab] 4 mg PO Q6H PRN PRN Reason: Nausea - Follow Up or Referral Follow Up: Maksim Roberts MD [Physician] - (Follow up as discussed.) Jacoby Barlow MD [Primary Care Provider] - 03/29/17 2:30 pm () - Forms/Instructions Instructions: Gastroenteritis (DC), Gastroparesis (DC) Exam - Constitutional Vitals: Period Temp Pulse Resp BP Sys/Alvarez Pulse Ox Last 24 Hr 97.2 F-98.7 F 91-105 16-20 144-193/75-96 95-99 General appearance: normal weight, no acute distress - Head Head exam: Present: normal inspection, normocephalic - Eye Eye exam: Present: EOMI Pupils: Present: BETHANY - Neck Neck exam: Present: normal inspection. Absent: thyromegaly - Respiratory Respiratory exam: Present: clear to auscultation bilaterally. Absent: rales, rhonchi, stridor, wheezes - Cardiovascular Cardiovascular exam: Present: regular rate and rhythm - GI/Abdominal GI/Abdominal exam: Present: normal bowel sounds, soft - Extremities Exam Extremities exam: Present: normal inspection, full ROM. Absent: edema - Neurological Exam Neurological exam: Present: alert, oriented X3, CN II-XII intact - Psychiatric Psychiatric exam: Present: normal affect, normal mood. Absent: agitated, anxious - Skin Skin exam: Present: normal color, warm, dry Discharge Results Procedures and tests throughout hospitalization: Pending Orders 03/18/17 19:13 Blood Culture Stat Labs on day of discharge: Labs from last 24 hours 03/22/17 03/22/17 03/21/17 11:35 07:27 20:23 POC Glucose 272 H 185 H 314 H 03/21/17 03/21/17 03/21/17 20:20 19:18 15:30 POC Glucose 315 H 346 H 194 H Preliminary micro results at discharge 03/18/17 19:13 Blood Culture - Preliminary Blood No growth at 3 days 03/18/17 19:13 Blood Culture - Preliminary Blood Gram Positive Cocci DS: Provider Date of admission: 03/18/17 22:34 Primary care physician: Jacoby Barlow MD Attending physician on admission: Kel Dalal MD Consults: 03/18/17 22:32 Consult to Physician [CONS] Routine Comment: acute abdominal pain; colitis Consulting Provider: Maksim Roberts When should Consulting Provider be notified: In am 03/19/17 03:19 Consult to Pastoral Services [CONS] Routine Comment: Pastoral Screen: Request Information Security Consultant Visit Pastoral Screen Source of Request: Patient 03/22/17 11:12 Consult to Case Mgmt/Social Srvs [CONS] Routine Reason for Case Mgmt/Social Srvs: Equipment Consult Comment: bedside commode for home use. Discharging clinician: Farrah Tomlin NP <Kel Dalal - Last Filed: 03/22/17 13:32> Hospital Course - Time spent with patient Time with patient DS: Greater than 30 minutes (Total discharge time for this patient, including [id number] time, clinical documentation, medication reconciliation, and discharge planning was 39 minutes.) Diagnosis - Discharge Diagnosis (1) Colitis Status: Resolved (2) Diabetes mellitus with hyperglycemia Status: Chronic (3) Leukocytosis Status: Resolved (4) Abdominal pain Status: Resolved (5) Abnormal findings on diagnostic imaging of abdomen Status: Acute (6) Gastroparesis Status: Acute Discharge Plan - Discharge Data Condition at Discharge: Stable Discharge Diet: advance to your usual diet, diabetic diet Activity: resume usual activities as tolerated Hygiene: no restrictions Weight Bearing at Discharge: full weight bearing Driving: no restrictions Contact your physician if you experience:: fever over 101, Nausea/Vomiting, pain uncontrolled by pain medications DS: Provider Expected date of discharge: 03/22/17
[2017-03-22 12:16] VITALS: BP 159/79
== END 2017-03-22 14:34 | disposition home or self-care (01) | DRG 872 ==
LOC: N.ED 17:34 → N.EDINP 22:34 → N.TELES 23:52
PROVIDERS: ADMIT Family Medicine; ATTEND Family Medicine

== ENCOUNTER 2021-10-07 01:10 | Inpatient (IN) ==
[2021-10-07] MEDS ORDERED: ONDANSETRON 4 MG/2 ML VIAL IV STA (02:39)
[2021-10-07] MEDS ORDERED: SODIUM CHLORIDE 0.9% 1,000 ML IV STA (02:39)
[2021-10-07] MEDS ORDERED: PIPERACILLIN/TAZOBACTAM 3,375 MG in SODIUM CHLORIDE 0.9% 100 ML IV STA (02:44)
[2021-10-07] MEDS ORDERED: ALBUTEROL NEB SOLN 5 MG/ML 20 ML/BOTTLE CONT NEB STA (02:44)
[2021-10-07] MEDS ORDERED: KETOROLAC 30 MG/1 ML VIAL IV STA (02:46)
[2021-10-07 02:48] LABS: Basophils # 0.1 10*3/uL (0.0-0.2); Basophils % 0.6 % (0.0-0.8); Eosinophils % 0.3 % (0.00-10.9); Hemoglobin 12.5 GM/DL (12.0-16.0); Immature Granulocytes % 0.6 %; Immature Granulocytes Absolute 0.06 #; Lymphocytes # 0.6 10*3/uL (1.4-4.0); Lymphocytes % 5.1 % (21.3-54.2); Mean Corpuscular HGB Conc 31.3 GM/DL (32-36); Mean Corpuscular Volume 77.5 FL (87-102); Mean Platelet Volume 10.8 FL (9.6-12.0); Monocytes # 0.8 10*3/uL (0.11-0.8); Monocytes % 7.1 % (1.7-12.7); Neutrophils % 86.3 % (38.7-73.9); Platelet Count 209 T/CUMM (130-400); Red Blood Count 5.16 MC/CUMM (3.8-5.5); Red Cell Distribution Width 14.9 % (9.3-17.3); White Blood Count 10.8 T/CUMM (4-12)
[2021-10-07 02:58] LABS: Albumin 3.4 G/DL (3.4-5.0); Bilirubin,Total 0.4 MG/DL (0.20-1.00); Calcium 9.3 MG/DL (8.5-10.1); Osmolality,Calculated 275.2 MOS/KG (273-304); Potassium 3.1 MMOL/L (3.5-5.1); Total Protein 7.1 G/DL (6.4-8.2)
[2021-10-07] MEDS ORDERED: POTASSIUM CHLORIDE 20 MEQ TABLET PO STA (03:06)
[2021-10-07] MEDS ORDERED: MAGNESIUM SULF RIDER 2 GM/50 ML PREMIX IV STA (03:06)
[2021-10-07 03:07] LABS: Mucus,Urine Occasional /LPF (Occasional); RBC,Urine 4 /HPF (0-4); Squamous Epithelial Cell,Urine Occasional /HPF (0-10)
[2021-10-07] MEDS ORDERED: SODIUM CHLORIDE 0.9% 1,900 ML IV ONE (03:07)
[2021-10-07 03:08] LABS: Bilirubin,Urine Small mg/dL (Negative); Blood, Urine Small mg/dL (Negative); Glucose,Urine (UA) 500 mg/dL (Negative); Ketones,Urine Trace mg/dL (Negative); Nitrite,Urine Negative (Negative); Protein,Urine 100 mg/dL (Negative); Urine Appearance Clear (Clear); Urine Color Yellow (Yellow); Urine Specific Gravity >= 1.030 (1.001-1.035); Urine Urobilinogen 0.2 eU/dL (<2.0)
[2021-10-07] MEDS ORDERED: DEXTROSE 50% 25 GM/50 ML VIAL IV PRN (05:04)
[2021-10-07] MEDS ORDERED: GLUCAGON 1 MG VIAL IM PRN (05:04)
[2021-10-07] MEDS ORDERED: ACETAMINOPHEN 325 MG TABLET PO PRN (05:04)
[2021-10-07] MEDS ORDERED: DEXTROSE 10% 250 ML BAG IV PRN (05:23)
[2021-10-07] MEDS ORDERED: methylPREDNISolone SOD SUC 40 MG/1 ML VIAL IV STA (05:26)
[2021-10-07] MEDS ORDERED: ALBUTEROL 2.5 MG/3 ML NEB RESP TX PRN (05:27)
[2021-10-07] MEDS ORDERED: MAGNESIUM SULF RIDER 4 GM/100 ML PREMIX IV PRN (05:29)
[2021-10-07] MEDS ORDERED: MAGNESIUM SULF RIDER 2 GM/50 ML PREMIX IV PRN (05:29)
[2021-10-07] MEDS ORDERED: POTASSIUM CHLORIDE 20 MEQ TABLET PO PRN (05:29)
[2021-10-07] MEDS: PANTOPRAZOLE 40 MG TABLET PO SCH ×2 (05:50→09:01)
[2021-10-07] MEDS: cefTRIAXone 1,000 MG in SODIUM CHLORIDE 0.9% 100 ML IV SCH (05:50)
[2021-10-07] MEDS: SODIUM CHLORIDE 0.9% 1,000 ML IV SCH ×2 (06:19→23:42)
[2021-10-07] MEDS ORDERED: ALBUTEROL 2.5 MG/3 ML NEB RESP TX SCH (07:00)
[2021-10-07] MEDS: INSULIN LISPRO 100 UNIT/ML SUBCUT SCH ×4 (07:30→21:31)
[2021-10-07] MEDS: ALBUTEROL/IPRATROPIUM 3 ML NEB RESP TX SCH ×5 (07:30→23:00)
[2021-10-07 08:23] LABS: Calcium 8.5 MG/DL (8.5-10.1); Potassium 3.5 MMOL/L (3.5-5.1)
[2021-10-07] MEDS: POTASSIUM CHLORIDE 20 MEQ TABLET PO SCH (09:01)
[2021-10-07] MEDS: guaiFENesin/DM ER 600-30 MG TABLET PO SCH ×2 (09:01→21:33)
[2021-10-07] MEDS: DOCUSATE SODIUM 100 MG CAPSULE PO SCH ×2 (09:01→21:32)
[2021-10-07] MEDS: ENOXAPARIN 40 MG/0.4 ML SYRINGE SUBCUT SCH (09:01)
[2021-10-07] MEDS: methylPREDNISolone SOD SUC 40 MG/1 ML VIAL IV SCH ×3 (12:24→23:42)
[2021-10-07 13:14] LABS: Calcium 8.6 MG/DL (8.5-10.1); Potassium 4.3 MMOL/L (3.5-5.1)
[2021-10-07 14:19] LABS: Arterial Base Excess iSTAT -6 MMOL/L (-2.5-2.5); Arterial Bicarbonate iSTAT 18.7 MMOL/L (20-26); Arterial O2 Saturation iSTAT 96 % (95-100); Arterial PCO2 iSTAT 34 MM HG (35-48); Arterial PO2 iSTAT 83 MM HG (80-95); Arterial Total CO2 iSTAT 20 MMO/L (23-27)
[2021-10-07] MEDS ORDERED: ROSUVASTATIN 10 MG TABLET PO SCH (21:00)
[2021-10-07] MEDS: METOPROLOL SUCCINATE XL 25 MG TABLET PO SCH (21:33)
[2021-10-08] MEDS: ALBUTEROL/IPRATROPIUM 3 ML NEB RESP TX SCH ×5 (03:00→19:37)
[2021-10-08] MEDS: cefTRIAXone 1,000 MG in SODIUM CHLORIDE 0.9% 100 ML IV SCH (05:56)
[2021-10-08] MEDS: methylPREDNISolone SOD SUC 40 MG/1 ML VIAL IV SCH ×3 (06:00→18:24)
[2021-10-08] MEDS: INSULIN LISPRO 100 UNIT/ML SUBCUT SCH ×3 (07:43→18:23)
[2021-10-08] MEDS: ONDANSETRON 4 MG/2 ML VIAL IV PRN ×2 (07:43→13:42)
[2021-10-08 07:51] LABS: Basophils % 0.1 % (0.0-0.8); Hematocrit 38.5 VOL% (35.7-47.0); Hemoglobin 11.5 GM/DL (12.0-16.0); Immature Granulocytes % 0.8 %; Immature Granulocytes Absolute 0.08 #; Lymphocytes # 1.1 10*3/uL (1.4-4.0); Lymphocytes % 10.6 % (21.3-54.2); Mean Corpuscular HGB Conc 29.9 GM/DL (32-36); Mean Corpuscular Volume 80.7 FL (87-102); Mean Platelet Volume 11.2 FL (9.6-12.0); Monocytes # 0.6 10*3/uL (0.11-0.8); Monocytes % 5.6 % (1.7-12.7); Neutrophils % 82.9 % (38.7-73.9); Platelet Count 197 T/CUMM (130-400); Red Blood Count 4.77 MC/CUMM (3.8-5.5); Red Cell Distribution Width 15.7 % (9.3-17.3); White Blood Count 10.7 T/CUMM (4-12)
[2021-10-08 08:17] LABS: Alanine Aminotransferase 61 U/L (13-56); Albumin 3.1 G/DL (3.4-5.0); Alkaline Phosphatase 71 U/L (45-117); Aspartate Amino Transferase 155 U/L (0-37); Bilirubin,Total < 0.39 MG/DL (0.20-1.00); Blood Urea Nitrogen 18 MG/DL (7-18); Calcium 8.5 MG/DL (8.5-10.1); Carbon Dioxide 27 MMOL/L (21-32); Chloride 109 MMOL/L (98-107); Estimated Glom Filtration Rate 88 ML/MIN; Glucose 306 MG/DL (74-106); Potassium 4.4 MMOL/L (3.5-5.1); Sodium 143 MMOL/L (136-145)
[2021-10-08] MEDS ORDERED: ASPIRIN CHEW 81 MG TABLET PO ONE (09:24)
[2021-10-08] MEDS ORDERED: ENOXAPARIN 80 MG/0.8 ML SYRINGE SUBCUT SCH (09:30)
[2021-10-08] MEDS ORDERED: NITROGLYCERIN 2% OINT 1 INCH/GM PACK TOP ONE (09:30)
[2021-10-08] MEDS ORDERED: traMADol 50 MG TABLET PO PRN (09:32)
[2021-10-08] MEDS: guaiFENesin/DM ER 600-30 MG TABLET PO SCH ×2 (09:46→21:10)
[2021-10-08] MEDS: POTASSIUM CHLORIDE 20 MEQ TABLET PO SCH (09:46)
[2021-10-08] MEDS: DOCUSATE SODIUM 100 MG CAPSULE PO SCH ×2 (09:47→21:11)
[2021-10-08] MEDS: METOPROLOL SUCCINATE XL 25 MG TABLET PO SCH ×2 (09:47→21:11)
[2021-10-08] MEDS: FERROUS SULFATE 325 MG TABLET PO SCH (09:47)
[2021-10-08 10:23] LABS: CKMB % 0.21 %
[2021-10-08] MEDS ORDERED: amLODIPine 5 MG TABLET PO SCH (11:00)
[2021-10-08] MEDS ORDERED: PANTOPRAZOLE 40 MG TABLET PO SCH (11:00)
[2021-10-08] MEDS ORDERED: VALSARTAN 80 MG TABLET PO SCH (11:00)
[2021-10-08] MEDS ORDERED: INSULIN GLARGINE 100 UNIT/ML SUBCUT SCH ×3 (11:00→21:00)
[2021-10-08 11:43] LABS: CKMB % 0.2 %; High Sensitive Troponin I* 1159.6 ng/L (0-54)
[2021-10-08] MEDS ORDERED: NICOTINE 21 MG/24 HR PATCH TRANSDERM PRN (11:50)
[2021-10-08] MEDS ORDERED: LABETALOL 20 MG/4 ML SYRINGE IV ONE (11:57)
[2021-10-08] MEDS ORDERED: MAGNESIUM SULF RIDER 2 GM/50 ML PREMIX IV PRN (12:02)
[2021-10-08] MEDS ORDERED: DIAZEPAM 5 MG TABLET PO ONE (12:02)
[2021-10-08] MEDS ORDERED: diphenhydrAMINE CAP 50 MG CAPSULE PO ONE (12:02)
[2021-10-08] MEDS ORDERED: POTASSIUM CHLORIDE RIDER 10 MEQ/100 ML PREMIX IV PRN (12:02)
[2021-10-08] MEDS: SODIUM CHLORIDE 0.9% 1,000 ML IV SCH ×2 (12:24→13:22)
[2021-10-08] MEDS: ENOXAPARIN 40 MG/0.4 ML SYRINGE SUBCUT SCH (12:46)
[2021-10-08] MEDS: GABAPENTIN 300 MG CAPSULE PO SCH ×2 (12:47→21:12)
[2021-10-08] MEDS: PANTOPRAZOLE 40 MG TABLET PO SCH (13:23)
[2021-10-08] MEDS ORDERED: NITROGLYCERIN DRIP 50 MG/250 ML BOTTLE IV ONE (14:10)
[2021-10-08] MEDS ORDERED: MIDAZOLAM 2 MG/2 ML VIAL ONE ×3 (14:11→15:39)
[2021-10-08] MEDS ORDERED: fentaNYL 100 MCG/2 ML VIAL ONE (14:11)
[2021-10-08] MEDS ORDERED: VERAPAMIL 5 MG/2 ML VIAL ONE (14:12)
[2021-10-08] MEDS ORDERED: TIROFIBAN 5,000 MCG/100 ML PREMIX IV ONE (14:52)
[2021-10-08] MEDS ORDERED: ETOMIDATE 40 MG/20 ML VIAL IV ONE (15:43)
[2021-10-08] MEDS ORDERED: SUCCINYLCHOLINE 200 MG/10 ML VIAL ONE (15:43)
[2021-10-08] MEDS ORDERED: METOPROLOL TARTRATE 5 MG/5 ML VIAL IV PRN (16:17)
[2021-10-08] MEDS ORDERED: hydrALAZINE 20 MG/1 ML VIAL IV PRN (16:17)
[2021-10-08] MEDS ORDERED: FUROSEMIDE 40 MG/4 ML VIAL IV ONE (16:28)
[2021-10-08 16:53] LABS: Arterial Base Excess iSTAT 0 MMOL/L (-2.5-2.5); Arterial Bicarbonate iSTAT 28.5 MMOL/L (20-26); Arterial O2 Saturation iSTAT 100 % (95-100); Arterial PCO2 iSTAT 65 MM HG (35-48); Arterial PO2 iSTAT 481 MM HG (80-95); Arterial Total CO2 iSTAT 31 MMO/L (23-27); Arterial pH iSTAT 7.249 (7.35-7.45)
[2021-10-08] MEDS: MIDAZOLAM 100 MG in SODIUM CHLORIDE 0.9% 80 ML IV PRN (17:45)
[2021-10-08 19:47] LABS: RBC,Urine 8 /HPF (0-4); Squamous Epithelial Cell,Urine Occasional /HPF (0-10); Urine Appearance Clear (Clear); Urine Color Yellow (Yellow); Urine pH 5.5 (4.5-8.0)
[2021-10-08 19:48] LABS: Bilirubin,Urine Negative (Negative); Blood, Urine Moderate mg/dL (Negative); Glucose,Urine (UA) >=1000 mg/dL (Negative); Ketones,Urine Negative (Negative); Nitrite,Urine Negative (Negative); Protein,Urine 30 mg/dL (Negative); Urine Urobilinogen 0.2 eU/dL (<2.0)
[2021-10-08] MEDS: AMITRIPTYLINE 75 MG TABLET PO SCH (21:10)
[2021-10-08] MEDS: ROSUVASTATIN 20 MG TABLET PO SCH (21:11)
[2021-10-08] MEDS: LIRAGLUTIDE SUBCUT SCH (21:12)
[2021-10-09] MEDS: INSULIN LISPRO 100 UNIT/ML SUBCUT SCH ×4 (00:07→18:25)
[2021-10-09] MEDS: methylPREDNISolone SOD SUC 40 MG/1 ML VIAL IV SCH ×3 (00:08→21:11)
[2021-10-09] MEDS: ALBUTEROL/IPRATROPIUM 3 ML NEB RESP TX SCH ×7 (00:08→23:55)
[2021-10-09 04:12] LABS: Arterial Base Excess iSTAT 5 MMOL/L (-2.5-2.5); Arterial Bicarbonate iSTAT 27.7 MMOL/L (20-26); Arterial O2 Saturation iSTAT 99 % (95-100); Arterial PCO2 iSTAT 32 MM HG (35-48); Arterial PO2 iSTAT 133 MM HG (80-95); Arterial Total CO2 iSTAT 29 MMO/L (23-27); Arterial pH iSTAT 7.552 (7.35-7.45)
[2021-10-09 04:54] LABS: Basophils % 0.2 % (0.0-0.8); Hematocrit 35.2 VOL% (35.7-47.0); Hemoglobin 11.2 GM/DL (12.0-16.0); Immature Granulocytes % 0.7 %; Immature Granulocytes Absolute 0.07 #; Lymphocytes % 10.6 % (21.3-54.2); Mean Corpuscular HGB Conc 31.8 GM/DL (32-36); Mean Corpuscular Volume 77.7 FL (87-102); Mean Platelet Volume 11.2 FL (9.6-12.0); Monocytes # 0.5 10*3/uL (0.11-0.8); Monocytes % 5.1 % (1.7-12.7); Neutrophils % 83.4 % (38.7-73.9); Platelet Count 203 T/CUMM (130-400); Red Blood Count 4.53 MC/CUMM (3.8-5.5); Red Cell Distribution Width 15.6 % (9.3-17.3); White Blood Count 9.8 T/CUMM (4-12)
[2021-10-09] MEDS: cefTRIAXone 1,000 MG in SODIUM CHLORIDE 0.9% 100 ML IV SCH (05:21)
[2021-10-09 05:24] LABS: Risk Ratio 4.45; VLDL Cholesterol 199.2 MG/DL
[2021-10-09 05:30] LABS: Albumin 2.7 G/DL (3.4-5.0); Bilirubin,Total 0.4 MG/DL (0.20-1.00); Calcium 8.3 MG/DL (8.5-10.1); Osmolality,Calculated 297.1 MOS/KG (273-304); Potassium 3.6 MMOL/L (3.5-5.1); Total Protein 6.5 G/DL (6.4-8.2)
[2021-10-09] MEDS ORDERED: FUROSEMIDE 40 MG/4 ML VIAL IV ONE (06:30)
[2021-10-09] MEDS ORDERED: POTASSIUM PHOSPHATE 30 MMOL in SODIUM CHLORIDE 0.9% 250 ML IV ONE (07:00)
[2021-10-09] MEDS ORDERED: POTASSIUM CHLORIDE 8 MEQ PO SCH (09:00)
[2021-10-09] MEDS: guaiFENesin/DM ER 600-30 MG TABLET PO SCH ×2 (10:18→21:08)
[2021-10-09] MEDS: ENOXAPARIN 40 MG/0.4 ML SYRINGE SUBCUT SCH (10:18)
[2021-10-09] MEDS: METOPROLOL SUCCINATE XL 50 MG TABLET PO SCH ×2 (10:19→21:08)
[2021-10-09] MEDS: DOCUSATE SODIUM 100 MG CAPSULE PO SCH ×2 (10:19→21:08)
[2021-10-09] MEDS: GABAPENTIN 300 MG CAPSULE PO SCH ×2 (10:20→21:08)
[2021-10-09] MEDS: ASPIRIN CHEW 81 MG TABLET PO SCH (10:20)
[2021-10-09] MEDS: amLODIPine 5 MG TABLET PO SCH (10:21)
[2021-10-09] MEDS: FERROUS SULFATE 325 MG TABLET PO SCH (10:21)
[2021-10-09] MEDS: POTASSIUM CHLORIDE 20 MEQ TABLET PO SCH (10:22)
[2021-10-09] MEDS: PANTOPRAZOLE 40 MG VIAL IV SCH (10:22)
[2021-10-09] MEDS: FUROSEMIDE 40 MG/4 ML VIAL IV SCH ×2 (11:52→16:27)
[2021-10-09] MEDS: FENOFIBRATE 145 MG TABLET PO SCH (11:54)
[2021-10-09] MEDS: MIDAZOLAM 100 MG in SODIUM CHLORIDE 0.9% 80 ML IV PRN (16:31)
[2021-10-09] MEDS: ROSUVASTATIN 20 MG TABLET PO SCH (21:08)
[2021-10-09] MEDS: AMITRIPTYLINE 75 MG TABLET PO SCH (21:08)
[2021-10-09] MEDS: INSULIN GLARGINE 100 UNIT/ML SUBCUT SCH (21:10)
[2021-10-09] MEDS: LIRAGLUTIDE SUBCUT SCH (21:33)
[2021-10-10] MEDS: INSULIN LISPRO 100 UNIT/ML SUBCUT SCH ×4 (01:08→18:44)
[2021-10-10 03:31] LABS: Arterial Base Excess iSTAT 7 MMOL/L (-2.5-2.5); Arterial Bicarbonate iSTAT 30.9 MMOL/L (20-26); Arterial O2 Saturation iSTAT 100 % (95-100); Arterial PCO2 iSTAT 42 MM HG (35-48); Arterial PO2 iSTAT 167 MM HG (80-95); Arterial Total CO2 iSTAT 32 MMO/L (23-27); Arterial pH iSTAT 7.474 (7.35-7.45)
[2021-10-10] MEDS: ALBUTEROL/IPRATROPIUM 3 ML NEB RESP TX SCH ×6 (03:50→23:00)
[2021-10-10 05:25] LABS: Basophils % 0.1 % (0.0-0.8); Hematocrit 34.2 VOL% (35.7-47.0); Hemoglobin 10.5 GM/DL (12.0-16.0); Immature Granulocytes % 0.7 %; Immature Granulocytes Absolute 0.05 #; Lymphocytes # 0.9 10*3/uL (1.4-4.0); Lymphocytes % 13.1 % (21.3-54.2); Mean Corpuscular HGB Conc 30.7 GM/DL (32-36); Mean Corpuscular Volume 79.7 FL (87-102); Mean Platelet Volume 11.4 FL (9.6-12.0); Monocytes # 0.5 10*3/uL (0.11-0.8); Monocytes % 6.3 % (1.7-12.7); NRBC # 0.02 10*3/uL; Neutrophils % 79.8 % (38.7-73.9); Platelet Count 202 T/CUMM (130-400); Red Blood Count 4.29 MC/CUMM (3.8-5.5); Red Cell Distribution Width 15.2 % (9.3-17.3); White Blood Count 7.1 T/CUMM (4-12)
[2021-10-10] MEDS: cefTRIAXone 1,000 MG in SODIUM CHLORIDE 0.9% 100 ML IV SCH (06:30)
[2021-10-10 06:35] LABS: Albumin 2.5 G/DL (3.4-5.0); Bilirubin,Total 0.4 MG/DL (0.20-1.00); Calcium 8.2 MG/DL (8.5-10.1); Potassium 3.7 MMOL/L (3.5-5.1); Total Protein 6.3 G/DL (6.4-8.2)
[2021-10-10] MEDS ORDERED: DEXMEDETOMIDINE 200 MCG in SODIUM CHLORIDE 0.9% 48 ML IV PRN (07:38)
[2021-10-10] MEDS ORDERED: INSULIN GLARGINE 100 UNIT/ML SUBCUT ONE (07:53)
[2021-10-10] MEDS: methylPREDNISolone SOD SUC 40 MG/1 ML VIAL IV SCH (08:51)
[2021-10-10] MEDS: PANTOPRAZOLE 40 MG VIAL IV SCH (08:51)
[2021-10-10] MEDS: ENOXAPARIN 40 MG/0.4 ML SYRINGE SUBCUT SCH (08:52)
[2021-10-10] MEDS: FUROSEMIDE 40 MG/4 ML VIAL IV SCH ×2 (08:52→16:28)
[2021-10-10] MEDS: guaiFENesin/DM ER 600-30 MG TABLET PO SCH ×2 (08:53→21:09)
[2021-10-10] MEDS: ASPIRIN CHEW 81 MG TABLET PO SCH (08:53)
[2021-10-10] MEDS: amLODIPine 5 MG TABLET PO SCH (08:53)
[2021-10-10] MEDS: POTASSIUM CHLORIDE 20 MEQ TABLET PO SCH (08:54)
[2021-10-10] MEDS: METOPROLOL SUCCINATE XL 50 MG TABLET PO SCH ×2 (08:54→21:09)
[2021-10-10] MEDS: DOCUSATE SODIUM 100 MG CAPSULE PO SCH ×2 (08:54→21:09)
[2021-10-10] MEDS: GABAPENTIN 300 MG CAPSULE PO SCH ×2 (08:54→21:09)
[2021-10-10] MEDS: FENOFIBRATE 145 MG TABLET PO SCH (08:54)
[2021-10-10] MEDS: FERROUS SULFATE 325 MG TABLET PO SCH (08:54)
[2021-10-10] MEDS: INSULIN GLARGINE 100 UNIT/ML SUBCUT SCH ×2 (18:45→22:41)
[2021-10-10 18:58] LABS: Calcium 8.3 MG/DL (8.5-10.1); Osmolality,Calculated 304.3 MOS/KG (273-304); Potassium 3.9 MMOL/L (3.5-5.1)
[2021-10-10] MEDS: AMITRIPTYLINE 75 MG TABLET PO SCH (21:09)
[2021-10-10] MEDS: ROSUVASTATIN 20 MG TABLET PO SCH (21:09)
[2021-10-10] MEDS: LIRAGLUTIDE SUBCUT SCH (22:41)
[2021-10-11] MEDS: INSULIN LISPRO 100 UNIT/ML SUBCUT SCH ×4 (00:15→20:57)
[2021-10-11] MEDS: ALBUTEROL/IPRATROPIUM 3 ML NEB RESP TX SCH ×6 (03:10→23:36)
[2021-10-11 05:45] LABS: ABG Base Excess 9.8 MMOL/L (-2.5-2.5); ABG HCO3 33.6 MMOL/L (20-26); ABG Oxygen Saturation 98.2 % (95-100); ABG PCO2 59.1 MM HG (35-48); ABG PH 7.403 (7.35-7.45); ABG TCO2 32.8 MMOL/L (23-27)
[2021-10-11] MEDS: cefTRIAXone 1,000 MG in SODIUM CHLORIDE 0.9% 100 ML IV SCH (05:56)
[2021-10-11 08:20] LABS: Basophils % 0.3 % (0.0-0.8); Eosinophils % 0.1 % (0.00-10.9); Hematocrit 42.7 VOL% (35.7-47.0); Hemoglobin 12.9 GM/DL (12.0-16.0); Immature Granulocytes % 1.1 %; Immature Granulocytes Absolute 0.12 #; Lymphocytes # 3.3 10*3/uL (1.4-4.0); Lymphocytes % 29.2 % (21.3-54.2); Mean Corpuscular HGB Conc 30.2 GM/DL (32-36); Mean Corpuscular Volume 80.9 FL (87-102); Monocytes # 0.9 10*3/uL (0.11-0.8); Monocytes % 7.7 % (1.7-12.7); NRBC # 0.02 10*3/uL; Neutrophils % 61.6 % (38.7-73.9); Platelet Count 227 T/CUMM (130-400); Red Blood Count 5.28 MC/CUMM (3.8-5.5); Red Cell Distribution Width 15.5 % (9.3-17.3); White Blood Count 11.3 T/CUMM (4-12)
[2021-10-11 08:35] LABS: Calcium 9.3 MG/DL (8.5-10.1); Osmolality,Calculated 289.1 MOS/KG (273-304); Potassium 3.3 MMOL/L (3.5-5.1)
[2021-10-11] MEDS: FUROSEMIDE 40 MG/4 ML VIAL IV SCH (08:45)
[2021-10-11] MEDS: PANTOPRAZOLE 40 MG VIAL IV SCH (08:46)
[2021-10-11] MEDS: methylPREDNISolone SOD SUC 40 MG/1 ML VIAL IV SCH (08:46)
[2021-10-11] MEDS: ASPIRIN CHEW 81 MG TABLET PO SCH (08:47)
[2021-10-11] MEDS: ENOXAPARIN 40 MG/0.4 ML SYRINGE SUBCUT SCH (08:47)
[2021-10-11] MEDS: DOCUSATE SODIUM 100 MG CAPSULE PO SCH ×2 (08:47→20:59)
[2021-10-11] MEDS: GABAPENTIN 300 MG CAPSULE PO SCH ×2 (08:47→21:00)
[2021-10-11] MEDS: guaiFENesin/DM ER 600-30 MG TABLET PO SCH ×2 (08:47→21:00)
[2021-10-11] MEDS: amLODIPine 5 MG TABLET PO SCH (08:48)
[2021-10-11] MEDS: FERROUS SULFATE 325 MG TABLET PO SCH (08:48)
[2021-10-11] MEDS: FENOFIBRATE 145 MG TABLET PO SCH (08:48)
[2021-10-11] MEDS: POTASSIUM CHLORIDE 20 MEQ TABLET PO SCH (08:48)
[2021-10-11] MEDS: METOPROLOL SUCCINATE XL 50 MG TABLET PO SCH ×2 (08:49→21:00)
[2021-10-11] MEDS ORDERED: INSULIN LISPRO 100 UNIT/ML SUBCUT SCH (16:00)
[2021-10-11] MEDS: AMITRIPTYLINE 75 MG TABLET PO SCH (20:59)
[2021-10-11] MEDS: ROSUVASTATIN 20 MG TABLET PO SCH (20:59)
[2021-10-11] MEDS: INSULIN GLARGINE 100 UNIT/ML SUBCUT SCH (21:05)
[2021-10-11] MEDS: LIRAGLUTIDE SUBCUT SCH (21:50)
[2021-10-12] MEDS: INSULIN LISPRO 100 UNIT/ML SUBCUT SCH ×6 (00:45→20:50)
[2021-10-12] MEDS: ALBUTEROL/IPRATROPIUM 3 ML NEB RESP TX SCH ×6 (03:20→22:58)
[2021-10-12 04:13] LABS: ABG Base Excess 7.9 MMOL/L (-2.5-2.5); ABG HCO3 31.7 MMOL/L (20-26); ABG Oxygen Saturation 98.5 % (95-100); ABG PH 7.422 (7.35-7.45)
[2021-10-12] MEDS: cefTRIAXone 1,000 MG in SODIUM CHLORIDE 0.9% 100 ML IV SCH (05:30)
[2021-10-12 05:48] LABS: Calcium 9.4 MG/DL (8.5-10.1); Osmolality,Calculated 283.3 MOS/KG (273-304); Potassium 3.2 MMOL/L (3.5-5.1)
[2021-10-12 05:49] LABS: Phosphorous 3.8 MG/DL (2.5-4.9)
[2021-10-12 06:05] LABS: Basophils % 0.2 % (0.0-0.8); Eosinophils % 0.3 % (0.00-10.9); Hematocrit 39.1 VOL% (35.7-47.0); Hemoglobin 12.1 GM/DL (12.0-16.0); Immature Granulocytes Absolute 0.13 #; Lymphocytes # 5.1 10*3/uL (1.4-4.0); Lymphocytes % 39.4 % (21.3-54.2); Mean Corpuscular HGB Conc 30.9 GM/DL (32-36); Mean Corpuscular Volume 79.1 FL (87-102); Mean Platelet Volume 11.3 FL (9.6-12.0); Monocytes # 1.1 10*3/uL (0.11-0.8); Monocytes % 8.5 % (1.7-12.7); NRBC # 0.03 10*3/uL; Neutrophils % 50.6 % (38.7-73.9); Platelet Count 212 T/CUMM (130-400); Red Blood Count 4.94 MC/CUMM (3.8-5.5); Red Cell Distribution Width 14.8 % (9.3-17.3); White Blood Count 12.8 T/CUMM (4-12)
[2021-10-12 06:11] LABS: Hypochromia Slight
[2021-10-12 06:12] LABS: Microcytosis 1+; Ovalocytes Slight; Polychromasia Slight
[2021-10-12] MEDS: POTASSIUM CHLORIDE RIDER 10 MEQ/100 ML PREMIX IV PRN ×2 (06:19→07:20)
[2021-10-12] MEDS: POTASSIUM CHLORIDE 20 MEQ TABLET PO SCH (08:31)
[2021-10-12] MEDS: GABAPENTIN 300 MG CAPSULE PO SCH ×2 (08:31→21:01)
[2021-10-12] MEDS: FERROUS SULFATE 325 MG TABLET PO SCH (08:32)
[2021-10-12] MEDS: guaiFENesin/DM ER 600-30 MG TABLET PO SCH ×2 (08:32→21:01)
[2021-10-12] MEDS: METOPROLOL SUCCINATE XL 50 MG TABLET PO SCH ×2 (08:32→21:01)
[2021-10-12] MEDS: amLODIPine 5 MG TABLET PO SCH (08:32)
[2021-10-12] MEDS: FENOFIBRATE 145 MG TABLET PO SCH (08:32)
[2021-10-12] MEDS: methylPREDNISolone SOD SUC 40 MG/1 ML VIAL IV SCH (08:33)
[2021-10-12] MEDS: ASPIRIN CHEW 81 MG TABLET PO SCH (08:33)
[2021-10-12] MEDS: FUROSEMIDE 40 MG/4 ML VIAL IV SCH (08:34)
[2021-10-12] MEDS: ENOXAPARIN 40 MG/0.4 ML SYRINGE SUBCUT SCH (08:35)
[2021-10-12] MEDS: PANTOPRAZOLE 40 MG TABLET PO SCH (08:45)
[2021-10-12] MEDS: DOCUSATE SODIUM 100 MG CAPSULE PO SCH ×2 (14:28→21:01)
[2021-10-12] MEDS: FUROSEMIDE 40 MG TABLET PO SCH (14:28)
[2021-10-12] MEDS: AMITRIPTYLINE 75 MG TABLET PO SCH (21:01)
[2021-10-12] MEDS: ROSUVASTATIN 20 MG TABLET PO SCH (21:01)
[2021-10-12] MEDS: INSULIN GLARGINE 100 UNIT/ML SUBCUT SCH (21:03)
[2021-10-12] MEDS: LIRAGLUTIDE SUBCUT SCH (21:35)
[2021-10-13] MEDS: INSULIN LISPRO 100 UNIT/ML SUBCUT SCH ×7 (00:50→23:59)
[2021-10-13 02:42] LABS: ABG Base Excess 7.4 MMOL/L (-2.5-2.5); ABG HCO3 31.2 MMOL/L (20-26); ABG Oxygen Saturation 98.2 % (95-100); ABG PCO2 55.6 MM HG (35-48); ABG PH 7.396 (7.35-7.45); ABG TCO2 30.2 MMOL/L (23-27)
[2021-10-13] MEDS: ALBUTEROL/IPRATROPIUM 3 ML NEB RESP TX SCH ×5 (02:53→19:35)
[2021-10-13 05:25] LABS: Basophils % 0.2 % (0.0-0.8); Eosinophils # 0.1 10*3/uL (0.0-0.87); Eosinophils % 0.6 % (0.00-10.9); Hematocrit 39.4 VOL% (35.7-47.0); Immature Granulocytes Absolute 0.13 #; Lymphocytes # 5.4 10*3/uL (1.4-4.0); Lymphocytes % 42.5 % (21.3-54.2); Mean Corpuscular HGB Conc 30.5 GM/DL (32-36); Mean Corpuscular Volume 79.1 FL (87-102); Monocytes % 7.6 % (1.7-12.7); Neutrophils % 48.1 % (38.7-73.9); Platelet Count 215 T/CUMM (130-400); Red Blood Count 4.98 MC/CUMM (3.8-5.5); Red Cell Distribution Width 14.5 % (9.3-17.3); White Blood Count 12.6 T/CUMM (4-12)
[2021-10-13] MEDS: cefTRIAXone 1,000 MG in SODIUM CHLORIDE 0.9% 100 ML IV SCH (05:32)
[2021-10-13 06:12] LABS: Hypochromia 1+; Microcytosis 1+; Ovalocytes Slight; Platelet Estimate Normal
[2021-10-13 08:32] LABS: Calcium 8.8 MG/DL (8.5-10.1); Osmolality,Calculated 285.1 MOS/KG (273-304); Potassium 3.6 MMOL/L (3.5-5.1)
[2021-10-13] MEDS: ASPIRIN CHEW 81 MG TABLET PO SCH (08:57)
[2021-10-13] MEDS: guaiFENesin/DM ER 600-30 MG TABLET PO SCH ×2 (08:58→20:57)
[2021-10-13] MEDS: DOCUSATE SODIUM 100 MG CAPSULE PO SCH ×2 (08:58→20:57)
[2021-10-13] MEDS: GABAPENTIN 300 MG CAPSULE PO SCH ×2 (08:58→20:57)
[2021-10-13] MEDS: METOPROLOL SUCCINATE XL 50 MG TABLET PO SCH ×2 (08:59→20:57)
[2021-10-13] MEDS: predniSONE 20 MG TABLET PO SCH (08:59)
[2021-10-13] MEDS: FUROSEMIDE 40 MG TABLET PO SCH (08:59)
[2021-10-13] MEDS: FENOFIBRATE 145 MG TABLET PO SCH (08:59)
[2021-10-13] MEDS: amLODIPine 5 MG TABLET PO SCH (08:59)
[2021-10-13] MEDS: POTASSIUM CHLORIDE 20 MEQ TABLET PO SCH (09:00)
[2021-10-13] MEDS: PANTOPRAZOLE 40 MG TABLET PO SCH (09:00)
[2021-10-13] MEDS: FERROUS SULFATE 325 MG TABLET PO SCH (09:01)
[2021-10-13] MEDS: ENOXAPARIN 40 MG/0.4 ML SYRINGE SUBCUT SCH (09:02)
[2021-10-13] MEDS: BUDESONIDE/FORMOTEROL 160-4.5 INHALER 6 GM INH SCH ×2 (12:25→21:00)
[2021-10-13] MEDS: ROSUVASTATIN 20 MG TABLET PO SCH (20:57)
[2021-10-13] MEDS: INSULIN GLARGINE 100 UNIT/ML SUBCUT SCH (20:57)
[2021-10-13] MEDS: AMITRIPTYLINE 75 MG TABLET PO SCH (20:58)
[2021-10-13] MEDS: LIRAGLUTIDE SUBCUT SCH (23:46)
[2021-10-14] MEDS: ALBUTEROL/IPRATROPIUM 3 ML NEB RESP TX SCH ×4 (00:03→10:55)
[2021-10-14] MEDS: ONDANSETRON 4 MG/2 ML VIAL IV PRN (04:16)
[2021-10-14 05:07] LABS: Basophils # 0.1 10*3/uL (0.0-0.2); Basophils % 0.3 % (0.0-0.8); Eosinophils # 0.1 10*3/uL (0.0-0.87); Eosinophils % 0.6 % (0.00-10.9); Hematocrit 39.3 VOL% (35.7-47.0); Hemoglobin 11.8 GM/DL (12.0-16.0); Immature Granulocytes % 1.7 %; Immature Granulocytes Absolute 0.24 #; Lymphocytes # 5.1 10*3/uL (1.4-4.0); Lymphocytes % 35.9 % (21.3-54.2); Mean Corpuscular Volume 80.4 FL (87-102); Mean Platelet Volume 10.9 FL (9.6-12.0); Monocytes # 1.2 10*3/uL (0.11-0.8); Monocytes % 8.1 % (1.7-12.7); Neutrophils % 53.4 % (38.7-73.9); Platelet Count 218 T/CUMM (130-400); Red Blood Count 4.89 MC/CUMM (3.8-5.5); Red Cell Distribution Width 14.6 % (9.3-17.3); White Blood Count 14.3 T/CUMM (4-12)
[2021-10-14 05:29] LABS: Hypochromia 1+; Microcytosis 1+; Ovalocytes Slight; Platelet Estimate Normal
[2021-10-14 05:34] LABS: Alanine Aminotransferase 46 U/L (13-56); Albumin 2.5 G/DL (3.4-5.0); Alkaline Phosphatase 66 U/L (45-117); Aspartate Amino Transferase 41 U/L (0-37); Bilirubin,Total < 0.39 MG/DL (0.20-1.00); Blood Urea Nitrogen 23 MG/DL (7-18); Calcium 9.3 MG/DL (8.5-10.1); Carbon Dioxide 30 MMOL/L (21-32); Chloride 104 MMOL/L (98-107); Estimated Glom Filtration Rate 101 ML/MIN; Glucose 122 MG/DL (74-106); Osmolality,Calculated 281.5 MOS/KG (273-304); Potassium 3.5 MMOL/L (3.5-5.1); Sodium 139 MMOL/L (136-145); Total Protein 6.7 G/DL (6.4-8.2)
[2021-10-14] MEDS: cefTRIAXone 1,000 MG in SODIUM CHLORIDE 0.9% 100 ML IV SCH (06:06)
[2021-10-14] MEDS: INSULIN LISPRO 100 UNIT/ML SUBCUT SCH ×4 (06:08→17:44)
[2021-10-14] MEDS: FUROSEMIDE 40 MG TABLET PO SCH (08:56)
[2021-10-14] MEDS: FENOFIBRATE 145 MG TABLET PO SCH (08:56)
[2021-10-14] MEDS: DOCUSATE SODIUM 100 MG CAPSULE PO SCH (08:56)
[2021-10-14] MEDS: ASPIRIN CHEW 81 MG TABLET PO SCH (08:56)
[2021-10-14] MEDS: ENOXAPARIN 40 MG/0.4 ML SYRINGE SUBCUT SCH (08:56)
[2021-10-14] MEDS: guaiFENesin/DM ER 600-30 MG TABLET PO SCH (08:56)
[2021-10-14] MEDS: amLODIPine 5 MG TABLET PO SCH (08:56)
[2021-10-14] MEDS: POTASSIUM CHLORIDE 20 MEQ TABLET PO SCH (08:57)
[2021-10-14] MEDS: PANTOPRAZOLE 40 MG TABLET PO SCH (08:57)
[2021-10-14] MEDS: FERROUS SULFATE 325 MG TABLET PO SCH (08:57)
[2021-10-14] MEDS: METOPROLOL SUCCINATE XL 50 MG TABLET PO SCH (08:57)
[2021-10-14] MEDS: predniSONE 20 MG TABLET PO SCH (08:57)
[2021-10-14] MEDS: GABAPENTIN 300 MG CAPSULE PO SCH (08:57)
[2021-10-14] MEDS: BUDESONIDE/FORMOTEROL 160-4.5 INHALER 6 GM INH SCH (09:21)
[2021-10-14] MEDS ORDERED: FLUCONAZOLE 100 MG TABLET PO SCH (15:00)
[2021-10-14 16:49] VITALS: BP 127/57
== END 2021-10-14 18:45 | disposition home health service (06) | DRG 208 ==
LOC: N.EDINP 01:10 → N.ED 01:10 → SUATTDRO 05:04 → N.EDINP 13:35 → N.5E 14:01 → N.ICU 10-08 15:33 → N.5E 10-13 15:37
PROVIDERS: ADMIT Internal Medicine; ATTEND Emergency Medicine
PROC: CLCCHCL (ICD-10-PCS; 2021-10-08 14:45)